=== PATIENT | female | born 1960 | race Caucasian/White ===

== ENCOUNTER → 2016-02-21 | Outpatient (CLI) | payer OTHER ==
--- NOTE | 2016-02-21 16:36 | P.HPBAR ---
Bariatric H&P - History & Physicial H&P Date: 02/21/16 History & Physicial: Visit/CC: FOLLOW UP VISIT Patient initial contact: Initial weight: 126.734 kg Initial weight in pounds: 279.40 Height: 5 ft 6 in Initial BMI: 45.1 Last weight: Current weight: 127.006 kg Current weight in pounds: 280.00 Current BMI: 45.1 [place] body weight (based on NIH guidelines): 58.967 kg Excess body weight loss: The patient is a 55 year-old F who presents for Bariatric Assessment. Patient presents for preoperative consultation. She saw her polishing machine operator helper Dr. Lopez. Who is told her that she should have surgery performed in 9 months due to her recent cardiac stent. The patient is worried about her paperwork. She has been preauthorized her surgery and may require repeat her preauthorization. Past Medical History Past Medical History: Diabetes Mellitus, GERD/Reflux, Hyperlipidemia, Hypertension Additional Past Medical History / Comment(s): CARDIAC HX SEE DR FORBES'S H& P History of Any Multi-Drug Resistant Organisms: None Reported Past Surgical History: Bariatric Surgery, Heart Catheterization With Stent, Hysterectomy Additional Past Surgical History / Comment(s): lapband, lapband removal 2010 Past Anesthesia/Blood Transfusion Reactions: No Reported Reaction Date of Last Stent Placement:: 12/06/2015 Past Psychological History: No Psychological Hx Reported Smoking Status: Never smoker Past Alcohol Use History: Rare Past Drug Use History: None Reported - Past Family History Mother Family Medical History: Cancer Father Family Medical History: Diabetes Mellitus Surgical - Exam Vital Signs Temp Pulse BP 97.0 F L 65 146/79 02/21/16 12:49 02/21/16 12:49 02/21/16 12:49 - General well developed, no distress - Eyes PERRL - ENT normal pinna - Neck no masses - Respiratory normal expansion - Cardiovascular Rhythm: regular - Abdomen Abdomen: soft, non tender Bariatric Assessment & Plan Plan: Morbid obesity. Patient will require cardiac clearance prior to sleeve gastrectomy. The patient will see her polishing machine operator helper in May. She will follow- up with me after her cardiology visit. Bariatric Checklist Checklist: Plan: Checklist: EGD: 1. Hiatal hernia: 2. H. Pylori: HgbA1c: Vitamin D: Smoking: Never smoker [facility] Psych[facility]ry clearance: Cardiology clearance: Sleep study: Diet journal: VTE risk score: VTE risk level: Rehab needs at discharge:
== END ==
CPT/HCPCS: 99211

== ENCOUNTER → 2016-06-12 | Outpatient (CLI) | payer OTHER ==
[2016-06-12 13:10] VITALS: BP 159/82; PULSE 69; TEMP 98.2; BMI 44.6
--- NOTE | 2016-06-12 15:45 | P.HPBAR ---
Bariatric H&P - History & Physicial H&P Date: 06/12/16 History & Physicial: Visit/CC: presurgical visit Patient initial contact: Initial weight: 126.734 kg Initial weight in pounds: 279.40 Height: 5 ft 7 in Initial BMI: 43.7 Last weight: Current weight: 129.365 kg Current weight in pounds: 285.20 Current BMI: 44.6 [place] body weight (based on NIH guidelines): 61.235 kg Excess body weight loss: The patient is a 56 year-old F who presents for Bariatric Assessment. Patient presents for sleeve gastrectomy follow-up consultation. She is awaiting cardiac clearance. She may need a cardiac catheterization. We went over the procedure of sleeve gastrectomy. And a discussed with the risks and benefits of procedure including staple line disruption bleeding or perforation. Review of Systems Constitutional: Reports anorexia Past Medical History Past Medical History: Diabetes Mellitus, GERD/Reflux, Hyperlipidemia, Hypertension Additional Past Medical History / Comment(s): CARDIAC HX SEE DR FORBES'S H& P History of Any Multi-Drug Resistant Organisms: None Reported Past Surgical History: Bariatric Surgery, Heart Catheterization With Stent, Hysterectomy Additional Past Surgical History / Comment(s): lapband, lapband removal 2010 Past Anesthesia/Blood Transfusion Reactions: No Reported Reaction Date of Last Stent Placement:: 12/06/2015 Past Psychological History: No Psychological Hx Reported Smoking Status: Never smoker Past Alcohol Use History: Rare Past Drug Use History: None Reported - Past Family History Mother Family Medical History: Cancer Father Family Medical History: Diabetes Mellitus Surgical - Exam Vital Signs Temp Pulse BP 98.2 F 69 159/82 06/12/16 13:05 06/12/16 13:05 06/12/16 13:05 - General well developed, no distress - Eyes PERRL - ENT normal pinna - Neck no bruits - Respiratory normal expansion - Cardiovascular Rhythm: regular - Abdomen Abdomen: soft, non tender Bariatric Assessment & Plan Plan: Morbid obesity with BMI 45. Patient will be scheduled for sleeve gastrectomy once her cardiac clearance is completed. She'll follow-up in approximately 6 weeks. Bariatric Checklist Checklist: Plan: Checklist: EGD: 1. Hiatal hernia: 2. H. Pylori: HgbA1c: Vitamin D: Smoking: Never smoker Primary care physician referral: ann ([facility]) Psychiatry clearance: Cardiology clearance: Sleep study: Diet journal: VTE risk score: VTE risk level: Rehab needs at discharge:
== END | disposition home or self-care (01) ==
LOC: BARWHC3 12:47
PROVIDERS: ATTEND Surgery
DX: Z01.818 Encounter for other preprocedural examination (principal); E66.01 Morbid (severe) obesity due to excess calories; Z68.42 Body mass index [BMI] 45.0-49.9, adult
CPT/HCPCS: 99211

== ENCOUNTER 2016-07-11 10:58 | Day surgery (SDC) | payer OTHER ==
[2016-07-05 08:53] VITALS: BMI 45.1
[~2016-07-11 10:58] MED LIST: ALPRAZolam 0.25 MG TAB PO PRN; ASPIRIN 325 MG TAB PO ONE; SODIUM CHLORIDE 0.9% 1,000 ML in EMPTY BAG 1 BAG IV ONE
[2016-07-11 11:15] VITALS: RESP 16
[2016-07-11 11:26] LABS: Glucose,Whole Blood 163 mg/dL (75-99)
[2016-07-11] MEDS: MIDAZOLAM 2 MG/2 ML VIAL IV ONE ×2 (12:48→12:53)
[2016-07-11] MEDS ORDERED: diphenhydrAMINE 50 MG/ML 1 ML VIAL IVP ONE (12:50)
[2016-07-11] MEDS ORDERED: LIDOCAINE 2% INJ 20 MG/ML SQ ONE ×2 (12:55→13:04)
[2016-07-11] MEDS ORDERED: fentaNYL (PF) 50 MCG/ML 2 ML AMP IV ONE (13:00)
[2016-07-11] MEDS ORDERED: RX INFO: IV CONTRAST WAS GIVEN 1 EACH MISC MISCELLANE PRN (13:26)
[2016-07-11] MEDS ORDERED: IOHEXOL 350 MG/ML 125ML BOTTLE INJ ONE (13:30)
[2016-07-11] MEDS ORDERED: SODIUM CHLORIDE 0.9% 1,000 ML IV SCH (13:30)
[2016-07-11 15:42] VITALS: TEMP 97.4
[2016-07-11 17:03] LABS: Glucose,Whole Blood 119 mg/dL (75-99)
[2016-07-11 17:06] VITALS: BP 138/65; PULSE 71
--- NOTE | 2016-07-12 09:02 | P.PCN ---
Date of Procedure: 07/11/16 Preoperative Diagnosis: Ischemic heart disease and probably abnormal stress test. Patient requiring preop clearance for surgical procedure Postoperative Diagnosis: Patent stent in the LAD with mild ostial stenosis of the circumflex which is stable Procedure(s) Performed: Left heart catheterization without left ventriculography Implants: Indications for Procedure: Operative Findings: Description of Procedure: HISTORY: This is a 56-year-old female with history of stent placement of the left anterior descending who is going to have gastric sleeve operation. Patient had a recent stress test which showed possible ischemia and anterior wall. Patient is advised to have a cardiac catheterization to rule out any in- stent stenosis before clearing her for surgery CONSENT:I have discussed the risks, benefits and alternative therapies for the above-mentioned procedure and for both sedation/analgesia as well as necessary blood product administration, if indicated, as they pertain to this patient. The patient has indicated understanding and acceptance of the risks and procedures discussed. PROCEDURE: Patient was brought to the lab in a fasting state. Patient was given some IV sedation. The right groin is infiltrated with lidocaine and right femoral artery was entered using Seldinger technique. A 6-Macedonian catheter was left in place and selective coronary arteriography was performed. Patient tolerated the procedure well. Femoral angiogram was performed and Angio-Seal was applied for hemostasis. No immediate complications were noted and patient was transferred to [facility] in a stable condition HEMODYNAMICS: Aortic pressure is about 110/70. Left ankle end-diastolic pressure is about 15. There was no gradient across the aortic valve. SELECTIVE CORONARY ARTERIOGRAPHY: LEFT MAIN: Normal length and patent THE LEFT ANTERIOR DESCENDING CORONARY ARTERY: This is a good caliber vessel giving rise to good-sized diagonal branch. The proximal and mid LAD is calcified. Stent in the proximal to mid LAD appears to be patent. THE LEFT CIRCUMFLEX AND IS CORONARY ARTERY: This is a good caliber vessel giving rise to good-sized OM branch. The circumflex and its branches are free of occlusive disease except mild stenosis of the ostium of the circumflex THE RIGHT CORONARY ARTERY: This is a good caliber vessel and appears to be free of any significant occlusive disease. LEFT VENTRICULOGRAPHY: Not performed FINAL IMPRESSION: Stable coronary artery disease with a patent stent in the left anterior descending. Mild ostial stenosis of the circumflex PLAN: Continuation of the maximal medical therapy. Patient is being cleared for surgery PROGNOSIS: Fair
== END 2016-07-11 19:37 | disposition home or self-care (01) ==
LOC: CATHCVL 10:58 → 3SUR 13:20 → 3OBS 19:33 → CATHCVL 19:37
PROVIDERS: ATTEND Internal Medicine Cardiovascular Disease
DX: Z01.810 Encounter for preprocedural cardiovascular examination (principal); I25.10 Atherosclerotic heart disease of native coronary artery without angina pectoris; I10 Essential (primary) hypertension; Z87.891 Personal history of nicotine dependence; E78.5 Hyperlipidemia, unspecified; E11.9 Type 2 diabetes mellitus without complications; Z79.84 Long term (current) use of oral hypoglycemic drugs; E66.01 Morbid (severe) obesity due to excess calories; Z68.42 Body mass index [BMI] 45.0-49.9, adult; Z79.82 Long term (current) use of aspirin; Z79.899 Other long term (current) drug therapy; Z88.0 Allergy status to penicillin
CPT/HCPCS: 93458; 99152; 99153; C1760; C1894; C1769; J2001; J2250; J1200; J3010; Q9967

== ENCOUNTER → 2016-07-17 | Outpatient (CLI) | payer OTHER ==
--- NOTE | 2016-07-17 14:00 | MM ---
Reason for exam: screening (asymptomatic). Last mammogram was performed 1 year ago. History: Patient is postmenopausal. Family history of breast cancer in mother at age 72. Benign left US cyst aspiration of the left breast, January 12, 2006. Benign excisional biopsy of the left breast, December 30, 1999. Physical Findings: A clinical breast exam by your physician is recommended on an annual basis and results should be correlated with mammographic findings. MG 3D Screening Mammo W/Cad Bilateral CC and MLO view(s) were taken. Prior study comparison: July 16, 2015, bilateral MG 3d screening mammo w/cad. July 14, 2014, bilateral MG screening mammo w CAD. There are scattered fibroglandular densities. Previous mammotome biopsy within the left breast. No significant changes when compared with prior studies. ASSESSMENT: Benign, BI-RAD 2 RECOMMENDATION: Routine screening mammogram of both breasts in 1 year.
== END | disposition home or self-care (01) ==
LOC: RADMAMWWP 10:05
PROVIDERS: ATTEND Family Medicine
DX: Z12.31 Encounter for screening mammogram for malignant neoplasm of breast (principal); Z80.3 Family history of malignant neoplasm of breast
CPT/HCPCS: 77063; G0202

== ENCOUNTER → 2016-07-24 | Outpatient (CLI) | payer OTHER ==
[2016-07-24 13:50] VITALS: BP 165/83; PULSE 76; RESP 16; TEMP 98.1; BMI 44.5
--- NOTE | 2016-07-24 13:50 | P.HPBAR ---
Bariatric H&P - History & Physicial H&P Date: 07/24/16 History & Physicial: Visit/CC: Patient initial contact: Initial weight: 126.734 kg Initial weight in pounds: Height: 5 ft 7 in Initial BMI: Last weight: Current weight: 129.092 kg Current weight in pounds: Current BMI: [place] body weight (based on NIH guidelines): Excess body weight loss: The patient is a 56 year-old F who presents for Bariatric Assessment. The patient has obtained cardiac clearance. She wishes to proceed with her gastric sleeve. She is still more replaced with a BMI 45. Past Medical History Past Medical History: Diabetes Mellitus, GERD/Reflux, Hyperlipidemia, Hypertension Additional Past Medical History / Comment(s): CARDIAC HX SEE DR FORBES'S H& P History of Any Multi-Drug Resistant Organisms: None Reported Past Surgical History: Bariatric Surgery, Heart Catheterization With Stent, Hysterectomy Additional Past Surgical History / Comment(s): lapband, lapband removal 2010,D& Cs Past Anesthesia/Blood Transfusion Reactions: No Reported Reaction Date of Last Stent Placement:: 12/06/2015 Past Psychological History: No Psychological Hx Reported Smoking Status: Never smoker Past Alcohol Use History: Rare Past Drug Use History: None Reported - Past Family History Mother Family Medical History: Cancer Father Family Medical History: Diabetes Mellitus Surgical - Exam - General well developed, no distress - Eyes PERRL - ENT normal pinna - Respiratory normal expansion - Cardiovascular Rhythm: regular - Abdomen Abdomen: soft, non tender Bariatric Assessment & Plan Plan: Morbid obesity with BMI of 45. Patient will attend new patient class and meet with the dietitian. She'll be scheduled for sleeve gastrectomy once her authorizations complete. Bariatric Checklist Checklist: Plan: Checklist: EGD: 1. Hiatal hernia: 2. H. Pylori: HgbA1c: Vitamin D: Smoking: Never smoker Primary care physician referral: ann ([facility]) Psychiatry clearance: Cardiology clearance: Sleep study: Diet journal: VTE risk score: VTE risk level: Rehab needs at discharge:
== END | disposition home or self-care (01) ==
LOC: BARWHC3 12:55
PROVIDERS: ATTEND Surgery
DX: Z09 Encounter for follow-up examination after completed treatment for conditions other than malignant neoplasm (principal); E11.9 Type 2 diabetes mellitus without complications; E78.5 Hyperlipidemia, unspecified; I10 Essential (primary) hypertension; Z98.84 Bariatric surgery status
CPT/HCPCS: 99211

== ENCOUNTER → 2016-09-04 | Outpatient (CLI) | payer OTHER ==
[2016-09-04 15:25] LABS: Basophils % (A) 1 %; CHCM 32.3; Eosinophils # (A) 0.2 k/uL (0-0.7); Eosinophils % (A) 2 %; HCT 41.4 % (34.0-46.0); HDW 2.45; HGB 13.6 gm/dL (11.4-16.0); Luc # (Auto) 0.25; Luc % (Auto) 3; Lymphocytes # (A) 2.3 k/uL (1.0-4.8); Lymphocytes % (A) 29 %; MCH 30.7 pg (25.0-35.0); MCHC 32.9 g/dL (31.0-37.0); MCV 93.4 fL (80.0-100.0); Mean Platelet Volume 7.8; Monocytes # (A) 0.7 k/uL (0-1.0); Monocytes % (A) 9 %; Neutrophils # (A) 4.4 k/uL (1.3-7.7); Neutrophils % (A) 56 %; RBC 4.44 m/uL (3.80-5.40); RDW 14.8 % (11.5-15.5); WBC 7.9 k/uL (3.8-10.6)
[2016-09-04 15:32] LABS: ALT 57 U/L (9-52); AST 39 U/L (14-36); Alkaline Phosphatase 73 U/L (38-126); Anion Gap 12 mmol/L; Blood Urea Nitrogen 22 mg/dL (7-17); Calcium 10.1 mg/dL (8.4-10.2); Carbon Dioxide 26 mmol/L (22-30); Chloride 105 mmol/L (98-107); Glucose 163 mg/dL (74-99); Non-African American GFR(MDRD) >60 (>60 ml/min/1.73 sqM); Potassium 3.8 mmol/L (3.5-5.1); Sodium 143 mmol/L (137-145); Total Bilirubin 0.5 mg/dL (0.2-1.3); Total Protein 7.2 g/dL (6.3-8.2)
== END | disposition home or self-care (01) ==
LOC: LABPAT 14:54
PROVIDERS: ATTEND Surgery
DX: Z01.812 Encounter for preprocedural laboratory examination (principal)
CPT/HCPCS: 80053; 85025

== ENCOUNTER → 2016-09-04 | Outpatient (CLI) | payer OTHER ==
[2016-09-04 14:11] VITALS: BP 144/68; PULSE 84; RESP 16; TEMP 97.9; BMI 44.9
--- NOTE | 2016-09-04 17:13 | P.HPBAR ---
Bariatric H&P - History & Physicial H&P Date: 09/04/16 History & Physicial: Visit/CC: Pre-Surg Patient initial contact: Initial weight: 126.734 kg Initial weight in pounds: 279.40 Height: 5 ft 7 in Initial BMI: 43.7 Last weight: Current weight: 130.181 kg Current weight in pounds: 287.00 Current BMI: 44.9 [place] body weight (based on NIH guidelines): 61.235 kg Excess body weight loss: The patient is a 56 year-old F who presents for Bariatric Assessment. The patient presents today for follow-up. She has morbid obesity. She is scheduled to have her sleeve gastrectomy performed next month. Patient still has some minimal GERD symptoms. Past Medical History Past Medical History: Diabetes Mellitus, GERD/Reflux, Hyperlipidemia, Hypertension Additional Past Medical History / Comment(s): CARDIAC HX SEE DR FORBES'S H& P History of Any Multi-Drug Resistant Organisms: None Reported Past Surgical History: Bariatric Surgery, Heart Catheterization With Stent, Hysterectomy Additional Past Surgical History / Comment(s): lapband, lapband removal 2010,D& Cs Past Anesthesia/Blood Transfusion Reactions: No Reported Reaction Date of Last Stent Placement:: 12/06/2015 Past Psychological History: No Psychological Hx Reported Smoking Status: Never smoker Past Alcohol Use History: Rare Past Drug Use History: None Reported - Past Family History Mother Family Medical History: Cancer Father Family Medical History: Diabetes Mellitus Surgical - Exam Vital Signs Temp Pulse Resp BP 97.9 F 84 16 144/68 09/04/16 14:08 09/04/16 14:08 09/04/16 14:08 09/04/16 14:08 - General well developed, no distress - Eyes PERRL - Abdomen Abdomen: soft, non tender Bariatric Assessment & Plan Plan: Morbid obesity with BMI of 45. I discussed with the patient the risks of surgery including conversion to the open procedure and injury to the stomach, liver and spleen. I discussed with possible risk of gastric staple line disruption, bleeding or perforation. The patient will be scheduled for sleeve atropine next month. Bariatric Checklist Checklist: Plan: Checklist: EGD: 1. Hiatal hernia: 2. H. Pylori: HgbA1c: Vitamin D: Smoking: Never smoker Primary care physician referral: ann ([facility]) Psychiatry clearance: Cardiology clearance: Sleep study: Diet journal: VTE risk score: VTE risk level: Rehab needs at discharge:
== END | disposition home or self-care (01) ==
LOC: BARWHC3 13:51
PROVIDERS: ATTEND Surgery
DX: Z01.818 Encounter for other preprocedural examination (principal); E11.9 Type 2 diabetes mellitus without complications; E78.5 Hyperlipidemia, unspecified; I10 Essential (primary) hypertension; K21.9 Gastro-esophageal reflux disease without esophagitis; Z98.84 Bariatric surgery status
CPT/HCPCS: 99211

== ENCOUNTER 2016-09-26 07:45 | Inpatient (IN) | payer OTHER ==
[~2016-09-26 07:45] MED LIST changes: -ALPRAZolam 0.25 MG TAB PO PRN; -ASPIRIN 325 MG TAB PO ONE; +DEXAMETHASONE SOD PHOSPHATE 10 MG/ML 1 ML VIAL IV ONE; +HYDROmorphone 1 MG/ML 1 ML SYRINGE IVP PRN; +MIDAZOLAM 2 MG/2 ML VIAL IV PRN; +ONDANSETRON 4 MG/2 ML VIAL IVP ONE; +SCOPOLAMINE 1.5MG/72HR PATCH TRANSDERM ONE; -SODIUM CHLORIDE 0.9% 1,000 ML in EMPTY BAG 1 BAG IV ONE; +ceFAZolin 3 GM in SODIUM CHLORIDE 0.9% 100 ML IVPB ONE
[2016-09-26] MEDS ORDERED: METHYLENE BLUE 30 MG in DEXTROSE 5% IN WATER 500 ML IRRIGATION ONE ×2 (08:41)
[2016-09-26] MEDS: LACTATED RINGERS 1,000 ML IV SCH (08:45)
[2016-09-26] MEDS ORDERED: LIDOCAINE 1% 20 ML VIAL (10MG/ML) FOR IV START INTRADERMA ONE (08:45)
[2016-09-26 08:57] LABS: Glucose,Whole Blood 111 mg/dL (75-99)
--- NOTE | 2016-09-26 09:15 | P.GSHP ---
History of Present Illness H&P Date: 09/26/16 Chief Complaint: Morbid obesity, BMI 43 This a 56-year-old female who presents today for laparoscopic sleeve gastrectomy patient's had a previous LAP-BAND which was removed over a year ago. Patient presents sleeve gastrectomy.. She understands the risks and benefits of procedure. She understands the risk of gastric perforation staple line disruption and bleeding. Past Medical History Past Medical History: Diabetes Mellitus, GERD/Reflux, Hyperlipidemia, Hypertension Additional Past Medical History / Comment(s): Hx rapid heart rate,steroid injection July History of Any Multi-Drug Resistant Organisms: None Reported Past Surgical History: Bariatric Surgery, Cardiac Ablation, Heart Catheterization With Stent, Hysterectomy Additional Past Surgical History / Comment(s): lapband, lapband removal 2010,D& Cs Past Anesthesia/Blood Transfusion Reactions: No Reported Reaction Additional Past Anesthesia/Blood Transfusion Reaction / Comment(s): no hx blood transfusion Date of Last Stent Placement:: 12/06/2015 Smoking Status: Never smoker - Past Family History Mother Family Medical History: Cancer Father Family Medical History: Diabetes Mellitus Medications and Allergies Home Medications Medication Instructions Recorded Confirmed Type Aspirin 81 mg PO HS 06/07/15 09/26/16 History Furosemide [Lasix] 20 mg PO HS 06/07/15 09/26/16 History Losartan-Hctz 50-12.5 mg [Hyzaar 1 tab PO QAM 06/07/15 09/26/16 History 50-12.5] Montelukast [Singulair] 10 mg PO HS 06/07/15 09/26/16 History [place]-3 Fatty Acids/Fish Oil [Fish 1,200 mg PO DAILY 06/07/15 09/26/16 History Oil 1,000 mg Softgel] Pioglitazone [Actos] 30 mg PO DAILY 06/07/15 09/26/16 History Potassium Chloride [Klor-Con 10] 10 meq PO DAILY 06/07/15 09/26/16 History Ubidecarenone [Co Q-10] 200 mg PO DAILY 06/07/15 09/26/16 History Cetirizine HCl 10 mg PO DAILY 10/29/15 09/26/16 History Multivit-Min/Iron/Folic/Lutein 1 each PO DAILY 10/29/15 09/26/16 History [Centrum Silver Women Tablet] glipiZIDE [Glucotrol] 10 mg PO AC-BID 10/29/15 09/26/16 History Estradiol Cream [Estrace Cream 0.5 gm VAGINAL Q7DAYS 07/05/16 09/26/16 History 0.01%] metFORMIN HCL [Glucophage] 1,000 mg PO BID 09/18/16 09/26/16 History Allergies Allergy/AdvReac Type Severity Reaction Status Date / Time Penicillins Allergy Unknown Rash/Hives Verified 09/26/16 08:23 adhesive tape Allergy skin Verified 09/26/16 08:23 redness and itching,"paper tape ok" Surgical - Exam Vital Signs Temp Pulse Resp BP Pulse Ox 98.1 F 67 18 115/67 98 09/26/16 08:29 09/26/16 08:29 09/26/16 08:29 09/26/16 08:29 09/26/16 08:29 BMI 43 - General well developed, no distress - Eyes PERRL - ENT normal pinna - Neck no masses - Respiratory normal expansion - Cardiovascular Rhythm: regular - Abdomen Abdomen: soft, non tender Results - Labs Abnormal Lab Results - Last 24 Hours (Table) 09/26/16 Range/Units 08:42 POC Glucose (mg/dL) 111 H (75-99) mg/dL Assessment and Plan Plan: Morbid obesity with severe companies. We'll perform laparoscopic sleeve gastrectomy.
[2016-09-26] MEDS ORDERED: BUPIVACAINE-EPI 0.5%-1:200,000 10 ML VIAL SQ ONE (09:22)
[2016-09-26] MEDS ORDERED: ROCURONIUM BROMIDE 10 MG/ML 10 ML VIAL IV ONE (09:33)
[2016-09-26] MEDS ORDERED: fentaNYL (PF) 50 MCG/ML 2 ML AMP ONE (09:33)
[2016-09-26] MEDS ORDERED: NEOSTIGMINE 1 MG/ML 10 ML VIAL ONE (09:33)
[2016-09-26] MEDS ORDERED: GLYCOPYRROLATE 0.2 MG/ML 2 ML VIAL ONE (09:33)
[2016-09-26] MEDS ORDERED: LIDOCAINE 1% INJ 10MG/ML (20 ML MDV) ONE (09:33)
[2016-09-26] MEDS ORDERED: PROPOFOL 10 MG/ML 20 ML VIAL IV ONE (09:33)
[2016-09-26] MEDS ORDERED: MIDAZOLAM 2 MG/2 ML VIAL ONE (09:33)
[2016-09-26] MEDS ORDERED: ENOXAPARIN 40 MG/0.4 ML SYRINGE SQ ONE (09:45)
[2016-09-26] MEDS ORDERED: LIDOCAINE 2%-EPI 1:100,000 20 ML VIAL SQ ONE (10:04)
[2016-09-26] MEDS ORDERED: BUPIVACAINE (PF) 0.25% 30 ML VIAL SQ ONE (10:04)
[2016-09-26] MEDS ORDERED: NALOXONE 0.4 MG/ML 1 ML VIAL IV PRN (11:10)
[2016-09-26] MEDS ORDERED: HYDROmorphone 1 MG/ML 1 ML SYRINGE IVP PRN (11:11)
[2016-09-26] MEDS ORDERED: KETOROLAC 30 MG/ML 1 ML VIAL IVP ONE (11:47)
[2016-09-26 12:05] LABS: Glucose,Whole Blood 174 mg/dL (75-99)
--- NOTE | 2016-09-26 12:36 | P.OP ---
Date of Procedure: 09/26/16 Preoperative Diagnosis: Morbid obesity BMI 43 Postoperative Diagnosis: Morbid obesity BMI 43 Procedure(s) Performed: Laparoscopic sleeve gastrectomy Laparoscopic lysis of adhesions Implants: Anesthesia: SAMM Surgeon: Flavio Garcia Estimated Blood Loss (ml): 5 Pathology: none sent Condition: stable Disposition: PACU Indications for Procedure: Operative Findings: Description of Procedure: The patient was placed on the operating room table in the supine position. She received general anesthesia and then was placed in dorsal lithotomy position. Her abdomen was prepped and draped in sterile fashion. The skin incision sites were anesthetized 1% local Xylocaine. And then the skin was incised with an 11 blade in the left lateral position. Using a blade less trocar under direct visualization the peritoneal cavity was entered. The abdomen was insufflated and then a 5 mm laparoscope was placed into the peritoneal cavity. A 5 mm trocar was placed in the right epigastric, and right lateral position. A 15 mm trocar was placed in the supra-umbilical position and another 5 mm trocar was placed in the left lateral position. The left lateral lobe of the liver was retracted. The stomach was visualized. The adhesions to the stomach were lysed using electrocautery and sharp dissection. Approximately 20 minutes of operative time used to lyse adhesions. The anterior gastric wall plication was taken down with sharp dissection. The patient a previous LAP-BAND. The greater curvature of the stomach was then dissected using the Harmonic scissors. The dissection occurred approximately 5 cm from the pylorus to the level of the left meli. There was no hiatal hernia seen. At this point a 40- Serbian bougie dilator was placed the oropharynx and passed into the esophagus and into the stomach by the PUMP RUNNER. The sleeve gastrectomy was performed by using the powered echelon stapler with a seam guard buttress material. Sequential firings of the stapler were performed. The gastric remnant was then brought out through the 15 mm trocar site. The dilator was withdrawn. And a orogastric tube was replaced into the stomach. The stomach was insufflated with 200 mL of methylene blue normal saline. There was no evidence of extravasation. The abdomen was irrigated there is no bleeding seen. The Rodney -Gume device was used to close the 15 mm trocar with 0 Vicryl. Skin was closed with interrupted 3-0 Monocryl sutures once the trochars withdrawn. Dermabond dressing was applied. Patient was sent to recovery in stable condition.
[2016-09-26] MEDS: 0.9% NACL WITH KCL 20 MEQ/L 1,000 ML IV SCH (13:32)
--- NOTE | 2016-09-26 14:07 | P.CONS ---
History of Present Illness - Reason for Consult Consult date: 09/26/16 Medical management - Chief Complaint Morbid obesity - History of Present Illness This is a 56-year-old female with past medical history noted below who was admitted to the hospital for elective sleeve gastrectomy. She is postoperative day #0. Patient tolerated the surgery well. Pain is well-controlled. She does not have any complaints at this time. I was asked to see her for medical management. She is allowed to have ice chips at this time. Review of Systems Review of system: 14 points review of systems were obtained and were negative except to what were mentioned in the HPI. Past Medical History Past Medical History: Diabetes Mellitus, GERD/Reflux, Hyperlipidemia, Hypertension Additional Past Medical History / Comment(s): Hx rapid heart rate,steroid injection July History of Any Multi-Drug Resistant Organisms: None Reported Past Surgical History: Bariatric Surgery, Cardiac Ablation, Heart Catheterization With Stent, Hysterectomy Additional Past Surgical History / Comment(s): lapband, lapband removal 2010,D& Cs Past Anesthesia/Blood Transfusion Reactions: No Reported Reaction Additional Past Anesthesia/Blood Transfusion Reaction / Comm: no hx blood transfusion Date of Last Stent Placement:: 12/06/2015 Past Psychological History: No Psychological Hx Reported Smoking Status: Never smoker Past Alcohol Use History: Rare Past Drug Use History: None Reported - Past Family History Mother Family Medical History: Cancer Father Family Medical History: Diabetes Mellitus Medications and Allergies Home Medications Medication Instructions Recorded Confirmed Type Aspirin 81 mg PO HS 06/07/15 09/26/16 History Furosemide [Lasix] 20 mg PO HS 06/07/15 09/26/16 History Losartan-Hctz 50-12.5 mg [Hyzaar 1 tab PO QAM 06/07/15 09/26/16 History 50-12.5] Montelukast [Singulair] 10 mg PO HS 06/07/15 09/26/16 History [place]-3 Fatty Acids/Fish Oil [Fish 1,200 mg PO DAILY 06/07/15 09/26/16 History Oil 1,000 mg Softgel] Pioglitazone [Actos] 30 mg PO DAILY 06/07/15 09/26/16 History Potassium Chloride [Klor-Con 10] 10 meq PO DAILY 06/07/15 09/26/16 History Ubidecarenone [Co Q-10] 200 mg PO DAILY 06/07/15 09/26/16 History Cetirizine HCl 10 mg PO DAILY 10/29/15 09/26/16 History Multivit-Min/Iron/Folic/Lutein 1 tab PO DAILY 10/29/15 09/26/16 History [Centrum Silver Women Tablet] glipiZIDE [Glucotrol] 10 mg PO AC-BID 10/29/15 09/26/16 History Estradiol Cream [Estrace Cream 0.5 gm VAGINAL Q7DAYS 07/05/16 09/26/16 History 0.01%] metFORMIN HCL [Glucophage] 1,000 mg PO BID 09/18/16 09/26/16 History Allergies Allergy/AdvReac Type Severity Reaction Status Date / Time Penicillins Allergy Unknown Rash/Hives Verified 09/26/16 08:23 adhesive tape Allergy skin Verified 09/26/16 08:23 redness and itching,"paper tape ok" Physical Exam Vitals: Vital Signs Temp Pulse Resp BP Pulse Ox 09/26/16 12:30 56 L 16 129/61 94 L 09/26/16 12:15 71 16 129/61 94 L 09/26/16 12:00 62 16 145/65 92 L 09/26/16 11:45 64 16 160/70 100 09/26/16 11:30 96.7 F L 81 16 149/75 100 09/26/16 08:29 98.1 F 67 18 115/67 98 Intake and Output 09/25/16 09/26/16 09/26/16 22:59 06:59 14:59 Intake Total 1000 Output Total 75 Balance 925 Intake: IV 1000 Output: Estimated Blood Loss 75 Other: Weight 124.3 kg Patient Weight 09/27/16 06:59 Weight 124.3 kg General: The patient is awake and alert, in no distress Eye: there is normal conjunctiva bilaterally. Neck: The neck is supple, there is no JVD. Cardiovascular: Normal S1-S2, no S3-S4, no murmurs. Respiratory: Lungs clear to auscultation bilaterally Gastrointestinal: Abdomen is soft, nontender Musculoskeletal: There is no pedal edema. Neurological:. Speech is normal. Skin: Skin is warm and dry Results Labs: Abnormal Lab Results - Last 24 Hours (Table) 09/26/16 09/26/16 Range/Units 08:42 12:02 POC Glucose (mg/dL) 111 H 174 H (75-99) mg/dL Assessment and Plan Plan: 1. Postoperative day #0 status post laparoscopic sleeve gastrectomy 2. Coronary artery disease with history of stent placement to the LAD. Continue dual antiplatelet therapy 3. Essential hypertension: Blood pressure well-controlled 4. Type 2 diabetes mellitus: Continue sliding scale insulin. Hold oral agents for now 5. DVT prophylaxis with subcu Lovenox Today, I reviewed her medication list. Continue current regimen. Lab work ordered for the morning. Postoperative care. IV fluid hydration. Thank you very much for the consultation, I will continue to follow up with you closely.
[2016-09-26] MEDS: ALBUTEROL NEBULIZED 2.5 MG/3 ML INHALATION SCH ×3 (14:35→20:04)
[2016-09-26 16:36] LABS: Glucose,Whole Blood 186 mg/dL (75-99)
[2016-09-26] MEDS: KETOROLAC 30 MG/ML 1 ML VIAL IVP SCH ×2 (16:53→18:26)
[2016-09-26] MEDS: CLINDAMYCIN 900 MG in DEXTROSE 5% IN WATER 50 ML IVPB SCH ×2 (17:18)
[2016-09-26] MEDS: INSULIN LISPRO (humaLOG) 300 UNIT/3 ML VIAL SQ SCH (18:06)
[2016-09-26] MEDS ORDERED: MONTELUKAST 10 MG TAB PO SCH (21:00)
[2016-09-26] MEDS ORDERED: ASPIRIN 81 MG PO SCH (21:00)
[2016-09-26] MEDS ORDERED: ATORVASTATIN 80 MG TAB PO SCH (21:00)
[2016-09-26 21:43] LABS: Glucose,Whole Blood 135 mg/dL (75-99)
[2016-09-26] MEDS: METOPROLOL TARTRATE 25 MG TAB PO SCH (21:45)
[2016-09-26 23:37] LABS: Glucose,Whole Blood 132 mg/dL (75-99)
[2016-09-27] MEDS: INSULIN LISPRO (humaLOG) 300 UNIT/3 ML VIAL SQ SCH ×3 (00:29→11:53)
[2016-09-27] MEDS: CLINDAMYCIN 900 MG in DEXTROSE 5% IN WATER 50 ML IVPB SCH ×2 (00:30)
[2016-09-27] MEDS: 0.9% NACL WITH KCL 20 MEQ/L 1,000 ML IV SCH ×2 (00:30→09:36)
[2016-09-27] MEDS: KETOROLAC 30 MG/ML 1 ML VIAL IVP SCH ×3 (00:32→11:55)
[2016-09-27 02:01] VITALS: RESP 16
[2016-09-27] MEDS: LACTATED RINGERS 1,000 ML IV SCH (05:52)
[2016-09-27 06:01] LABS: Glucose,Whole Blood 99 mg/dL (75-99)
[2016-09-27] MEDS: ALBUTEROL NEBULIZED 2.5 MG/3 ML INHALATION SCH ×2 (07:20→11:30)
[2016-09-27 07:38] VITALS: BP 144/64; PULSE 73; TEMP 96.8
[2016-09-27 07:48] LABS: Basophils % (A) 0 %; CH 30.5; CHCM 32.9; Eosinophils % (A) 0 %; HCT 34.6 % (34.0-46.0); HDW 2.53; HGB 10.8 gm/dL (11.4-16.0); Luc # (Auto) 0.25; Luc % (Auto) 3; Lymphocytes # (A) 1.1 k/uL (1.0-4.8); Lymphocytes % (A) 13 %; MCHC 31.2 g/dL (31.0-37.0); Monocytes # (A) 0.8 k/uL (0-1.0); Monocytes % (A) 9 %; Neutrophils # (A) 6.5 k/uL (1.3-7.7); Neutrophils % (A) 75 %; RBC 3.72 m/uL (3.80-5.40); RDW 14.9 % (11.5-15.5); WBC 8.7 k/uL (3.8-10.6); WBC (Perox) 9.49
[2016-09-27 07:54] LABS: Anion Gap 9 mmol/L; Blood Urea Nitrogen 16 mg/dL (7-17); Calcium 8.7 mg/dL (8.4-10.2); Carbon Dioxide 25 mmol/L (22-30); Chloride 106 mmol/L (98-107); Magnesium 1.7 mg/dL (1.6-2.3); Non-African American GFR(MDRD) >60 (>60 ml/min/1.73 sqM); Phosphorous 2.8 mg/dL (2.5-4.5); Potassium 3.8 mmol/L (3.5-5.1); Sodium 140 mmol/L (137-145)
[2016-09-27] MEDS ORDERED: 1: MVI, ADULT NO.4 WITH VIT K 10 ML, THIAMINE 100 MG, FOLIC ACID 1 MG, POTASSIUM CHLORID IV SCH ×6 (08:00)
--- NOTE | 2016-09-27 08:16 | FL ---
EXAMINATION TYPE: FL UGI DATE OF EXAM: 09/27/2016 CLINICAL HISTORY: Status post gastric sleeve Contrast: Omnipaque 350 50 mL 40sec fluoro time and 6 images The patient ingested contrast without difficulty or delay. Noted are postsurgical changes of gastric sleeve. There is no evidence for leak or obstruction. Contrast is noted within the duodenum. IMPRESSION: Post-surgical change of gastric sleeve without evidence for obstruction or leak at this point in time.
[2016-09-27] MEDS ORDERED: PANTOPRAZOLE 40 MG/10 ML VIAL IV SCH (09:00)
[2016-09-27] MEDS ORDERED: ENOXAPARIN 40 MG/0.4 ML SYRINGE SQ SCH (09:00)
[2016-09-27] MEDS ORDERED: LOSARTAN-HCTZ 50-12.5 MG 1 EACH TAB PO SCH (09:00)
[2016-09-27] MEDS ORDERED: PRASUGREL 10 MG TAB PO SCH (09:00)
[2016-09-27 09:08] LABS: Hemoglobin A1C 6.7 % (4.2-6.1)
[2016-09-27] MEDS: METOPROLOL TARTRATE 25 MG TAB PO SCH (09:37)
[2016-09-27 10:25] VITALS: BMI 42.9
[2016-09-27 11:49] LABS: Glucose,Whole Blood 96 mg/dL (75-99)
[2016-09-27] MEDS ORDERED: INSULIN LISPRO (humaLOG) 300 UNIT/3 ML VIAL SQ SCH (12:30)
--- NOTE | 2016-09-27 12:49 | P.PN ---
Subjective Patient is doing fairly well today. No evidence overnight. Objective - Vital Signs Vital signs: Vital Signs Temp 96.8 F L 09/27/16 07:00 Pulse 73 09/27/16 08:00 Resp 16 09/27/16 08:00 BP 144/64 09/27/16 07:00 Pulse Ox 97 09/27/16 08:46 Intake & Output 09/26/16 09/27/16 09/27/16 18:59 06:59 18:59 Intake Total 1000 2400 Output Total 75 1100 Balance 925 1300 Weight 124.3 kg 124.3 kg Intake: IV 1000 Intake, IV Titration 2400 Amount 0.9% NaCl with KCl 20 Meq 2400 /l 1,000 ml @ 150 mls/hr IV .[id number] [facility] Rx#: [id number] Output: Urine 1100 Estimated Blood Loss 75 Other: Voiding Method Toilet # Voids 50 1 # Bowel Movements 0 - Exam General: The patient is awake and alert, in no distress Eye: there is normal conjunctiva bilaterally. Neck: The neck is supple, there is no JVD. Cardiovascular: Normal S1-S2, no S3-S4, no murmurs. Respiratory: Lungs clear to auscultation bilaterally Gastrointestinal: Abdomen is soft, nontender Musculoskeletal: There is no pedal edema. Neurological:. Speech is normal. Skin: Skin is warm and dry - Labs CBC & Chem 7: 09/27/16 07:11 09/27/16 07:11 Labs: Abnormal Lab Results - Last 24 Hours (Table) 09/26/16 09/26/16 09/26/16 Range/Units 16:35 21:39 23:36 RBC (3.80-5.40) m/uL Hgb (11.4-16.0) gm/dL POC Glucose (mg/dL) 186 H 135 H 132 H (75-99) mg/dL Hemoglobin A1c (4.2-6.1) % 09/27/16 09/27/16 Range/Units 07:11 07:11 RBC 3.72 L (3.80-5.40) m/uL Hgb 10.8 L (11.4-16.0) gm/dL POC Glucose (mg/dL) (75-99) mg/dL Hemoglobin A1c 6.7 H (4.2-6.1) % Assessment and Plan Plan: 1. Postoperative day #1 status post laparoscopic sleeve gastrectomy 2. Coronary artery disease with history of stent placement to the LAD. Continue dual antiplatelet therapy 3. Essential hypertension: Blood pressure well-controlled 4. Type 2 diabetes mellitus: Well controlled. Continue sliding scale insulin. Hold oral agents for now. A1c 6.7 5. DVT prophylaxis with subcu Lovenox Today, I reviewed her medication list. Continue current regimen. Lab work ordered for the morning. Postoperative care. IV fluid hydration. Thank you very much for the consultation, I will continue to follow up with you closely.
--- NOTE | 2016-09-27 13:40 | P.DS ---
Providers Date of admission: 09/26/16 08:07 Expected date of discharge: 09/27/16 Attending physician: Flavio Garcia Consults: 09/26/16 11:11 Consult Physician Routine Consulting Provider: Martha Hdez Consult Reason/Comments: Medical management Do you want consulting provider notified?: Yes Primary care physician: Bethany [facility] Course: 56-year-old female underwent a laparoscopic sleeve gastrectomy lysis of adhesions for morbid obesity done on September 26. There were no postop events. Patient was tolerating clear liquid diet. Patient denied any surgical pain. Abdomen was soft surgical sites no redness. Patient was anxious to be discharged home. There were no postop events. Impression discharge diagnoses Morbid obesity BMI 42 Postop gastric sleeve Type 2 diabetes controlled Known coronary artery disease with prior coronary stenting to the LAD on dual antiplatelet therapy Postop September 26 laparoscopic sleeve gastrectomy The above impression and plan of care have been discussed and directed by signing physician. Alexandra Charles nurse practitioner acting as scribe for signing physician. Plan - Discharge Summary New Discharge Prescriptions: New HYDROcodone/APAP 5-325MG [[place] 5-325] 1 tab PO Q4HR PRN #15 tab PRN Reason: Mild Pain Or Fever >= 100.5 Continue Aspirin 81 mg PO HS Montelukast [Singulair] 10 mg PO HS Furosemide [Lasix] 20 mg PO HS [place]-3 Fatty Acids/Fish Oil [Fish Oil 1,000 mg Softgel] 1,200 mg PO DAILY Ubidecarenone [Co Q-10] 200 mg PO DAILY Potassium Chloride [Klor-Con 10] 10 meq PO DAILY Pioglitazone [Actos] 30 mg PO DAILY Losartan-Hctz 50-12.5 mg [Hyzaar 50-12.5] 1 tab PO QAM Cetirizine HCl 10 mg PO DAILY Multivit-Min/Iron/Folic/Lutein [Centrum Silver Women Tablet] 1 tab PO DAILY glipiZIDE [Glucotrol] 10 mg PO AC-BID Atorvastatin [Lipitor] 80 mg PO HS #30 tab Metoprolol Tartrate [Lopressor] 25 mg PO BID #60 tab Nitroglycerin Sl Tabs [Nitrostat] 0.4 mg SUBLINGUAL Q5M PRN #100 tab PRN Reason: Chest Pain Prasugrel [Effient] 10 mg PO DAILY tab Estradiol Cream [Estrace Cream 0.01%] 0.5 gm VAGINAL Q7DAYS metFORMIN HCL [Glucophage] 1,000 mg PO BID Discharge Medication List Aspirin 81 mg PO HS 06/07/15 [History] Furosemide [Lasix] 20 mg PO HS 06/07/15 [History] Losartan-Hctz 50-12.5 mg [Hyzaar 50-12.5] 1 tab PO QAM 06/07/15 [History] Montelukast [Singulair] 10 mg PO HS 06/07/15 [History] [place]-3 Fatty Acids/Fish Oil [Fish Oil 1,000 mg Softgel] 1,200 mg PO DAILY 06/06 [History] Pioglitazone [Actos] 30 mg PO DAILY 06/07/15 [History] Potassium Chloride [Klor-Con 10] 10 meq PO DAILY 06/07/15 [History] Ubidecarenone [Co Q-10] 200 mg PO DAILY 06/07/15 [History] Cetirizine HCl 10 mg PO DAILY 10/29/15 [History] Multivit-Min/Iron/Folic/Lutein [Centrum Silver Women Tablet] 1 tab PO DAILY [History] glipiZIDE [Glucotrol] 10 mg PO AC-BID 10/29/15 [History] Atorvastatin [Lipitor] 80 mg PO HS #30 tab 12/04/15 [Rx] Metoprolol Tartrate [Lopressor] 25 mg PO BID #60 tab 12/04/15 [Rx] Nitroglycerin Sl Tabs [Nitrostat] 0.4 mg SUBLINGUAL Q5M PRN #100 tab 12/04/15 [ Rx] Prasugrel [Effient] 10 mg PO DAILY tab 12/04/15 [Rx] Estradiol Cream [Estrace Cream 0.01%] 0.5 gm VAGINAL Q7DAYS 07/05/16 [History] metFORMIN HCL [Glucophage] 1,000 mg PO BID 09/18/16 [History] HYDROcodone/APAP 5-325MG [[place] 5-325] 1 tab PO Q4HR PRN #15 tab 09/27/16 [Rx] Follow up Appointment(s)/Referral(s): Flavio Garcia MD [STAFF PHYSICIAN] - 1 Week Activity/Diet/Wound Care/Special Instructions: Reinforce dietary restrictions bariatric diet No lifting over 10 pounds for 1 week Discharge Disposition: HOME SELF-CARE
== END 2016-09-27 14:33 | disposition home or self-care (01) | DRG 621 ==
LOC: 2ORWHC 08:07 → 3SUR 11:42
PROVIDERS: ADMIT Surgery; ATTEND Surgery
PROC: 0DB64Z3 Excision of Stomach, Percutaneous Endoscopic Approach, Vertical (ICD-10-PCS; principal; 2016-09-26 09:35)
PROC: 0DN64ZZ Release Stomach, Percutaneous Endoscopic Approach (ICD-10-PCS; principal; 2016-09-26 09:35)
DX: E66.01 Morbid (severe) obesity due to excess calories (principal); I10 Essential (primary) hypertension; E11.9 Type 2 diabetes mellitus without complications; E78.5 Hyperlipidemia, unspecified; I25.10 Atherosclerotic heart disease of native coronary artery without angina pectoris; K21.9 Gastro-esophageal reflux disease without esophagitis; K66.0 Peritoneal adhesions (postprocedural) (postinfection); Z68.41 Body mass index [BMI] 40.0-44.9, adult; Z79.82 Long term (current) use of aspirin; Z79.84 Long term (current) use of oral hypoglycemic drugs; Z79.899 Other long term (current) drug therapy; Z83.3 Family history of diabetes mellitus; Z95.5 Presence of coronary angioplasty implant and graft; Z88.0 Allergy status to penicillin
CPT/HCPCS: 74240; 80051; 82310; 82565; 83036; 83735; 84100; 84520; 85025; 88307; 94640; 94760; 94762

== ENCOUNTER → 2016-10-09 | Outpatient (CLI) | payer OTHER ==
[2016-10-09 14:53] VITALS: BP 124/74; PULSE 69; RESP 20; TEMP 98.9; BMI 42.1
--- NOTE | 2016-10-09 15:14 | P.HPBAR ---
Bariatric H&P - History & Physicial H&P Date: 10/09/16 History & Physicial: Visit/CC: post op Patient initial contact: Initial weight: 126.734 kg Initial weight in pounds: 279.40 Height: 5 ft 7 in Initial BMI: 43.7 Last weight: 287 Current weight: 122.016 kg Current weight in pounds: 269.00 Current BMI: 42.1 [place] body weight (based on NIH guidelines): 61.235 kg Excess body weight loss: 7.2% The patient is a 56 year-old F who presents for Bariatric Assessment. Patient presents today for laparoscopic sleeve gastrectomy follow-up. She is doing quite well. She lost approximately surgery. Past Medical History Past Medical History: Diabetes Mellitus, GERD/Reflux, Hyperlipidemia, Hypertension Additional Past Medical History / Comment(s): Hx rapid heart rate,steroid injection July History of Any Multi-Drug Resistant Organisms: None Reported Past Surgical History: Bariatric Surgery, Cardiac Ablation, Heart Catheterization With Stent, Hysterectomy Additional Past Surgical History / Comment(s): lapband, lapband removal 2010,D& Cs, sleeve gastrectomy 09/27/16 Past Anesthesia/Blood Transfusion Reactions: No Reported Reaction Additional Past Anesthesia/Blood Transfusion Reaction / Comm: no hx blood transfusion Date of Last Stent Placement:: 12/06/2015 Smoking Status: Never smoker - Past Family History Mother Family Medical History: Cancer Father Family Medical History: Diabetes Mellitus Surgical - Exam Vital Signs Temp Pulse Resp BP 98.9 F 69 20 124/74 10/09/16 14:45 10/09/16 14:45 10/09/16 14:45 10/09/16 14:45 - General well developed, no distress - Eyes PERRL - Abdomen Abdomen: soft, non tender Bariatric Assessment & Plan Plan: Status post sleeve yesterday. Patient doing quite well. She'll follow-up in 4 weeks. Bariatric Checklist Checklist: Plan: Checklist: EGD: 1. Hiatal hernia: 2. H. Pylori: HgbA1c: Vitamin D: Smoking: Never smoker Primary care physician referral: ann ([facility]) Psychiatry clearance: Cardiology clearance: Sleep study: Diet journal: VTE risk score: VTE risk level: Rehab needs at discharge:
== END | disposition home or self-care (01) ==
LOC: BARWHC3 13:49
PROVIDERS: ATTEND Surgery
DX: Z48.815 Encounter for surgical aftercare following surgery on the digestive system (principal); Z98.84 Bariatric surgery status; E66.01 Morbid (severe) obesity due to excess calories
CPT/HCPCS: 97803; 99211

== ENCOUNTER → 2016-10-23 | Outpatient (CLI) | payer OTHER ==
[2016-10-23 14:26] VITALS: BP 136/66; PULSE 65; RESP 16; TEMP 98.5; BMI 41.5
--- NOTE | 2016-10-23 15:14 | P.HPBAR ---
Bariatric H&P - History & Physicial H&P Date: 10/23/16 History & Physicial: Visit/CC: sleeve one month f/u Patient initial contact: Initial weight: 130.181 kg Initial weight in pounds: 287.00 Height: 5 ft 7 in Initial BMI: 44.9 Last weight: 269 Current weight: 120.383 kg Current weight in pounds: 265.40 Current BMI: 41.5 [place] body weight (based on NIH guidelines): 61.235 kg Excess body weight loss: 14.2% The patient is a 56 year-old F who presents for Bariatric Assessment. Patient presents today for sleeve gastric follow-up. She is doing quite well. She's had some minimal GERD. Approximately 25 pounds since her surgery Past Medical History Past Medical History: Diabetes Mellitus, GERD/Reflux, Hyperlipidemia, Hypertension Additional Past Medical History / Comment(s): Hx rapid heart rate,steroid injection July History of Any Multi-Drug Resistant Organisms: None Reported Past Surgical History: Bariatric Surgery, Cardiac Ablation, Heart Catheterization With Stent, Hysterectomy Additional Past Surgical History / Comment(s): lapband, lapband removal 2010,D& Cs, sleeve gastrectomy 09/27/16 Past Anesthesia/Blood Transfusion Reactions: No Reported Reaction Additional Past Anesthesia/Blood Transfusion Reaction / Comm: no hx blood transfusion Date of Last Stent Placement:: 12/06/2015 Smoking Status: Never smoker - Past Family History Mother Family Medical History: Cancer Father Family Medical History: Diabetes Mellitus Surgical - Exam Vital Signs Temp Pulse Resp BP 98.5 F 65 16 136/66 10/23/16 14:06 10/23/16 14:06 10/23/16 14:06 10/23/16 14:06 - General well developed, no distress - Eyes PERRL - ENT normal pinna, normal mucosa - Neck no masses, no bruits - Respiratory normal expansion - Abdomen Abdomen: soft, non tender Bariatric Assessment & Plan Plan: The patient is status post sleeve gastric A. She's doing quite well. She will follow-up in one month. Her GERD symptoms are minimal will be observed. Bariatric Checklist Checklist: Plan: Checklist: EGD: 1. Hiatal hernia: 2. H. Pylori: HgbA1c: Vitamin D: Smoking: Never smoker Primary care physician referral: Derek Perez ([facility]) Psychiatry clearance: Cardiology clearance: Sleep study: Diet journal: VTE risk score: VTE risk level: Rehab needs at discharge:
== END ==
LOC: BARWHC3 13:39
PROVIDERS: ATTEND Surgery
DX: Z48.815 Encounter for surgical aftercare following surgery on the digestive system (principal); Z98.84 Bariatric surgery status; E66.01 Morbid (severe) obesity due to excess calories
CPT/HCPCS: 97803; 99211

== ENCOUNTER → 2017-01-08 | Outpatient (CLI) | payer OTHER ==
[2017-01-08 13:26] VITALS: BP 124/69; PULSE 60; TEMP 98.2; BMI 36.9
[2017-01-08 14:31] LABS: ALT 204 U/L (9-52); AST 167 U/L (14-36); Alkaline Phosphatase 250 U/L (38-126); Anion Gap 8 mmol/L; Blood Urea Nitrogen 20 mg/dL (7-17); Calcium 10.5 mg/dL (8.4-10.2); Carbon Dioxide 28 mmol/L (22-30); Chloride 104 mmol/L (98-107); Glucose 92 mg/dL (74-99); Non-African American GFR(MDRD) >60 (>60 ml/min/1.73 sqM); Potassium 4.3 mmol/L (3.5-5.1); Sodium 140 mmol/L (137-145); Total Bilirubin 0.7 mg/dL (0.2-1.3); Total Protein 7.7 g/dL (6.3-8.2)
[2017-01-08 14:35] LABS: CH 29.5; CHCM 32.2; HCT 42.4 % (34.0-46.0); HDW 2.35; HGB 13.7 gm/dL (11.4-16.0); MCH 29.8 pg (25.0-35.0); MCHC 32.4 g/dL (31.0-37.0); MCV 91.8 fL (80.0-100.0); Mean Platelet Volume 7.7; RBC 4.61 m/uL (3.80-5.40); RDW 13.6 % (11.5-15.5)
--- NOTE | 2017-01-08 15:37 | P.HPBAR ---
Bariatric H&P - History & Physicial H&P Date: 01/08/17 History & Physicial: Visit/CC: 3 month f/u Patient initial contact: Initial weight: 130.181 kg Initial weight in pounds: 287.00 Height: 5 ft 7 in Initial BMI: 44.9 Last weight: 244 Current weight: 107.002 kg Current weight in pounds: 235.90 Current BMI: 36.9 [place] body weight (based on NIH guidelines): 61.235 kg Excess body weight loss: 33.6% The patient is a 56 year-old F who presents for Bariatric Assessment. Patient presents today for sleeve gastrectomy follow-up. She lost another 9 pounds since her last visit. She's had some minimal GERD. Past Medical History Past Medical History: Diabetes Mellitus, GERD/Reflux, Hyperlipidemia, Hypertension Additional Past Medical History / Comment(s): Hx rapid heart rate,steroid injection July History of Any Multi-Drug Resistant Organisms: None Reported Past Surgical History: Bariatric Surgery, Cardiac Ablation, Heart Catheterization With Stent, Hysterectomy Additional Past Surgical History / Comment(s): lapband, lapband removal 2010,D& Cs, sleeve gastrectomy 09/27/16 Past Anesthesia/Blood Transfusion Reactions: No Reported Reaction Additional Past Anesthesia/Blood Transfusion Reaction / Comm: no hx blood transfusion Date of Last Stent Placement:: 12/06/2015 Past Psychological History: No Psychological Hx Reported Smoking Status: Never smoker Past Alcohol Use History: Rare Past Drug Use History: None Reported - Past Family History Mother Family Medical History: Cancer Father Family Medical History: Diabetes Mellitus Surgical - Exam Vital Signs Temp Pulse BP 98.2 F 60 124/69 01/08/17 13:20 01/08/17 13:20 01/08/17 13:20 - General well developed, no distress - Eyes PERRL - Abdomen Abdomen: soft, non tender Results - Labs 01/08/17 14:10 01/08/17 14:10 Abnormal Lab Results - Last 24 Hours (Table) 01/08/17 Range/Units 14:10 BUN 20 H (7-17) mg/dL Calcium 10.5 H (8.4-10.2) mg/dL AST 167 H (14-36) U/L ALT 204 H (9-52) U/L Alkaline Phosphatase 250 H (38-126) U/L Diabetes panel 01/08/17 Range/Units 14:10 Sodium 140 (137-145) mmol/L Potassium 4.3 (3.5-5.1) mmol/L Chloride 104 (98-107) mmol/L Carbon Dioxide 28 (22-30) mmol/L BUN 20 H (7-17) mg/dL Creatinine 0.62 (0.52-1.04) mg/dL Glucose 92 (74-99) mg/dL Calcium 10.5 H (8.4-10.2) mg/dL AST 167 H (14-36) U/L ALT 204 H (9-52) U/L Alkaline Phosphatase 250 H (38-126) U/L Total Protein 7.7 (6.3-8.2) g/dL Albumin 4.4 (3.5-5.0) g/dL Thyroid panel 01/08/17 Range/Units 14:10 TSH 0.606 (0.465-4.680) mIU/L Calcium panel 01/08/17 Range/Units 14:10 Calcium 10.5 H (8.4-10.2) mg/dL Albumin 4.4 (3.5-5.0) g/dL Pituitary panel 01/08/17 Range/Units 14:10 Sodium 140 (137-145) mmol/L Potassium 4.3 (3.5-5.1) mmol/L Chloride 104 (98-107) mmol/L Carbon Dioxide 28 (22-30) mmol/L BUN 20 H (7-17) mg/dL Creatinine 0.62 (0.52-1.04) mg/dL Glucose 92 (74-99) mg/dL Calcium 10.5 H (8.4-10.2) mg/dL TSH 0.606 (0.465-4.680) mIU/L Adrenal panel 01/08/17 Range/Units 14:10 Sodium 140 (137-145) mmol/L Potassium 4.3 (3.5-5.1) mmol/L Chloride 104 (98-107) mmol/L Carbon Dioxide 28 (22-30) mmol/L BUN 20 H (7-17) mg/dL Creatinine 0.62 (0.52-1.04) mg/dL Glucose 92 (74-99) mg/dL Calcium 10.5 H (8.4-10.2) mg/dL Total Bilirubin 0.7 (0.2-1.3) mg/dL AST 167 H (14-36) U/L ALT 204 H (9-52) U/L Alkaline Phosphatase 250 H (38-126) U/L Total Protein 7.7 (6.3-8.2) g/dL Albumin 4.4 (3.5-5.0) g/dL Bariatric Assessment & Plan Plan: Status post sleeve yesterday. Patient has had reasonable weight loss. Her GERD symptoms will be observed. Bariatric Checklist Checklist: Plan: Checklist: EGD: 1. Hiatal hernia: 2. H. Pylori: HgbA1c: Vitamin D: Smoking: Never smoker Primary care physician referral: Derek Perez ([facility]) Psychiatry clearance: Cardiology clearance: Sleep study: Diet journal: VTE risk score: VTE risk level: Rehab needs at discharge:
[2017-01-08 18:41] LABS: Iron Saturation 18.65 (12.00-45.00)
== END | disposition home or self-care (01) ==
LOC: BARWHC3 12:54
PROVIDERS: ATTEND Surgery
DX: E66.01 Morbid (severe) obesity due to excess calories (principal); E11.9 Type 2 diabetes mellitus without complications; K21.9 Gastro-esophageal reflux disease without esophagitis; E78.5 Hyperlipidemia, unspecified; I10 Essential (primary) hypertension; Z98.84 Bariatric surgery status
CPT/HCPCS: 36415; 80053; 82306; 83540; 83550; 84443; 85027; 97803; 99211

== ENCOUNTER → 2017-05-24 | Outpatient (CLI) | payer OTHER ==
--- NOTE | 2017-05-24 22:47 | MR ---
EXAMINATION TYPE: MR shoulder LT wo con DATE OF EXAM: 05/24/2017 COMPARISON: Outside left shoulder x-rays May 09, 2017 HISTORY: Lt shoulder pain x several years, no trauma TECHNIQUE: Multiplanar, multisequence imaging of the left shoulder is performed without contrast. FINDINGS: Rotator Cuff: There is increased signal subdeltoid/subacromial bursa. There is thinning and increased signal in the fibers of the supraspinatus tendon and to lesser degree infraspinatus tendon along the bursal surface. No full-thickness or retracted tear is evident. Subscapularis tendon is intact. Rota tor cuff muscle bulk is preserved. Acromioclavicular Joint: There is joint space loss and capsular hypertrophy at acromioclavicular join t. There is type II downsloping acromion with loss of inferior fat plane. Glenohumeral Joint: There is glenohumeral joint space loss. There is small joint effusion. No signifi cant spurring is seen. Labrum: Degenerative increased signal superior labrum, no discrete tear. Biceps Tendon: The long head of biceps is in normal location within bicipital groove. Bone marrow signal: Heterogeneity consistent with red marrow reconversion is present. Other: No additional significant abnormality is appreciated. IMPRESSION: 1. Tendinosis and partial bursal surface tears of the supraspinatus and to lesser degree infraspinatu s tendons. Moderate adjacent subdeltoid/subacromial fluid. 2. Type II downsloping acromion with suggestion of underlying impingement. 3. Acromioclavicular and glenohumeral humeral joint arthropathy as detailed above.
== END | disposition home or self-care (01) ==
LOC: RADMRIMAIN 14:57
PROVIDERS: ATTEND Orthopaedic Surgery
DX: M67.814 Other specified disorders of tendon, left shoulder (principal); S46.812A Strain of other muscles, fascia and tendons at shoulder and upper arm level, left arm, initial encounter; M19.012 Primary osteoarthritis, left shoulder

== ENCOUNTER → 2017-06-04 | Outpatient (CLI) | payer OTHER ==
[2017-06-04 13:12] VITALS: BP 147/77; PULSE 62; RESP 16; TEMP 97.9; BMI 34.2
[2017-06-04 14:02] LABS: HCT 40.2 % (34.0-46.0); HGB 13.1 gm/dL (11.4-16.0); MCH 30.1 pg (25.0-35.0); MCHC 32.6 g/dL (31.0-37.0); MCV 92.3 fL (80.0-100.0); Mean Platelet Volume 7.2; Platelet Count 184 k/uL (150-450); RBC 4.36 m/uL (3.80-5.40); RDW 13.2 % (11.5-15.5); WBC 5.5 k/uL (3.8-10.6)
[2017-06-04 14:24] LABS: ALT 99 U/L (9-52); AST 70 U/L (14-36); Albumin 3.9 g/dL (3.5-5.0); Alkaline Phosphatase 144 U/L (38-126); Anion Gap 15 mmol/L; Blood Urea Nitrogen 18 mg/dL (7-17); Carbon Dioxide 27 mmol/L (22-30); Chloride 106 mmol/L (98-107); Glucose 107 mg/dL (74-99); Potassium 4.7 mmol/L (3.5-5.1); Sodium 148 mmol/L (137-145); Total Bilirubin 0.4 mg/dL (0.2-1.3); Total Protein 6.6 g/dL (6.3-8.2)
[2017-06-04 19:10] LABS: Iron Saturation 27.74 (12.00-45.00)
[2017-06-04 19:20] LABS: Vitamin D 25 Hydroxy 32.4 ng/mL (30.0-100.0)
--- NOTE | 2017-06-21 14:34 | P.HPBAR ---
Bariatric H&P - History & Physicial H&P Date: 06/04/17 History & Physicial: Visit/CC: sleeve follow-up Patient initial contact: Initial weight: 130.181 kg Initial weight in pounds: 287.00 Height: 5 ft 7 in Initial BMI: 44.9 Last weight: Current weight: 99.138 kg Current weight in pounds: 218.56 Current BMI: 34.2 [place] body weight (based on NIH guidelines): 61.235 kg Excess body weight loss: 45.0% The patient is a 57 year-old F who presents for Bariatric Assessment.patient presents today for sleeve gastrectomy follow-up. She is lost 18 pounds since her last visit. She's had some mild GERD. Past Medical History Past Medical History: Diabetes Mellitus, GERD/Reflux, Hyperlipidemia, Hypertension Additional Past Medical History / Comment(s): Hx rapid heart rate,steroid injection July History of Any Multi-Drug Resistant Organisms: None Reported Past Surgical History: Bariatric Surgery, Cardiac Ablation, Heart Catheterization With Stent, Hysterectomy Additional Past Surgical History / Comment(s): lapband, lapband removal 2010,D& Cs, sleeve gastrectomy 09/27/16 Past Anesthesia/Blood Transfusion Reactions: No Reported Reaction Additional Past Anesthesia/Blood Transfusion Reaction / Comm: no hx blood transfusion Date of Last Stent Placement:: 12/06/2015 Smoking Status: Never smoker - Past Family History Mother Family Medical History: Cancer, Deep Vein Thrombosis (DVT) Father Family Medical History: Diabetes Mellitus Surgical - Exam Vital Signs Temp Pulse Resp BP 97.9 F 62 16 147/77 06/04/17 13:09 06/04/17 13:09 06/04/17 13:09 06/04/17 13:09 - General well developed, no distress - Abdomen Abdomen: soft, non tender Results - Labs 06/04/17 13:41 06/04/17 13:41 Bariatric Assessment & Plan Plan: status post sleeve gastrectomy. Patient has had excellent weight loss. She'll follow up in 3 months for recheck. Her GERD symptoms are minimal and will be observed. Bariatric Checklist Checklist: Plan: Checklist: EGD: 1. Hiatal hernia: 2. H. Pylori: HgbA1c: Vitamin D: Smoking: Never smoker Primary care physician referral: Derek Perez ([facility]) Psychiatry clearance: Cardiology clearance: Sleep study: Diet journal: VTE risk score: VTE risk level: Rehab needs at discharge:
== END | disposition home or self-care (01) ==
LOC: BARWHC3 12:57
PROVIDERS: ATTEND Surgery
DX: Z09 Encounter for follow-up examination after completed treatment for conditions other than malignant neoplasm (principal); K21.9 Gastro-esophageal reflux disease without esophagitis; E11.9 Type 2 diabetes mellitus without complications; E78.5 Hyperlipidemia, unspecified; I10 Essential (primary) hypertension; D50.8 Other iron deficiency anemias; E45 Retarded development following protein-calorie malnutrition; E55.9 Vitamin D deficiency, unspecified; Z98.84 Bariatric surgery status; Z98.61 Coronary angioplasty status
CPT/HCPCS: 36415; 80053; 82306; 83540; 83550; 84443; 85027; 97803; 99211

== ENCOUNTER → 2017-07-18 | Outpatient (CLI) | payer OTHER ==
--- NOTE | 2017-07-19 13:51 | MM ---
Reason for exam: screening (asymptomatic). Last mammogram was performed 1 year ago. History: Patient is postmenopausal. Family history of breast cancer in mother at age 72. Benign left US cyst aspiration of the left breast, January 12, 2006. Benign excisional biopsy of the left breast, December 30, 1999. Physical Findings: A clinical breast exam by your physician is recommended on an annual basis and results should be correlated with mammographic findings. MG 3D Screening Mammo W/Cad Bilateral CC and MLO view(s) were taken. Prior study comparison: July 17, 2016, bilateral MG 3d screening mammo w/cad. July 16, 2015, bilateral MG 3d screening mammo w/cad. The breast tissue is heterogeneously dense. This may lower the sensitivity of mammography. Stable benign calcifications. No significant changes when compared with prior studies. ASSESSMENT: Benign, BI-RAD 2 RECOMMENDATION: Routine screening mammogram of both breasts in 1 year.
== END | disposition home or self-care (01) ==
LOC: RADMAMWWP 10:01
PROVIDERS: ATTEND Family Medicine
DX: Z12.31 Encounter for screening mammogram for malignant neoplasm of breast (principal)
CPT/HCPCS: 77063; 77067

== ENCOUNTER 2017-07-19 05:47 | Day surgery (SDC) | payer OTHER ==
[2017-07-11 14:24] VITALS: BMI 33.6
--- NOTE | 2017-07-18 20:28 | HP ---
HISTORY AND PHYSICAL REASON FOR ADMISSION: Surgery 07/19/2017 HISTORY OF PRESENT ILLNESS: Tish Dumont is a 57-year-old patient seen with progressive left shoulder pain. After treatment options were discussed with her, she elected to proceed with arthroscopy. Consent regarding the procedure was obtained. Medical clearance was provided by Derek ZAPATA. PAST MEDICAL HISTORY: [id number] diabetes, hypertension, hyperlipidemia, asthma. PAST SURGICAL HISTORY: D and C, hysterectomy, and lap band surgery. MEDICATIONS: Metformin, glipizide, Lasix, Actos, Lipitor, losartan, metoprolol, Zyrtec. ALLERGIES: PENICILLIN. SOCIAL HISTORY: Patient denies current tobacco use. PHYSICAL EXAMINATION: Evaluation left shoulder: Flexion is 120 degrees, abduction is 110 degrees. External rotation is 20 degrees with weakness. There is tenderness along the anterior lateral acromion rotator cuff insertion site. Positive impingement sign at 90 degrees. Drop- arm sign is positive. Distal neurovascular exam is intact. Left shoulder radiographs revealed a type 2 anterior acromion, evidence for acromioclavicular joint osteoarthritis and calcific changes of the rotator cuff tendon consistent with calcific tendinitis. An MRI left shoulder revealed a type 2 anterior acromion acromioclavicular joint osteoarthritis and rotator cuff tendon tear. IMPRESSION: 1. Left shoulder impingement with rotator cuff tear. 2. Left shoulder acromioclavicular joint osteoarthritis. PLAN: Left shoulder arthroscopy, subacromial decompression, probable arthroscopic rotator cuff repair, possible Jeff procedure and debridement. Surgery scheduled for 07/19/17. MMODL / IJN: [id number] /
[~2017-07-19 05:47] MED LIST changes: -HYDROmorphone 1 MG/ML 1 ML SYRINGE IVP PRN; +LACTATED RINGERS 1,000 ML IV SCH; -ONDANSETRON 4 MG/2 ML VIAL IVP ONE; -ceFAZolin 3 GM in SODIUM CHLORIDE 0.9% 100 ML IVPB ONE; +ceFAZolin IN SWFI 2 GM/20 ML SYRINGE IVP ONE; +fentaNYL (PF) 50 MCG/ML 2 ML AMP IV PRN
[2017-07-19 06:43] LABS: Glucose,Whole Blood 99 mg/dL (75-99)
[2017-07-19] MEDS ORDERED: MIDAZOLAM 2 MG/2 ML VIAL ONE (06:47)
[2017-07-19] MEDS ORDERED: PROPOFOL 10 MG/ML 20 ML VIAL IV ONE (07:28)
[2017-07-19] MEDS ORDERED: ePHEDrine SULFATE/0.9% NACL/PF 50 MG/5 ML SYRINGE IV ONE (07:28)
[2017-07-19] MEDS ORDERED: ROPIVACAINE 5 MG/ML 30 ML VIAL ONE (07:28)
[2017-07-19] MEDS ORDERED: LIDOCAINE 1% INJ 10MG/ML (20 ML MDV) ONE (07:28)
[2017-07-19] MEDS ORDERED: fentaNYL (PF) 50 MCG/ML 2 ML AMP ONE (07:28)
[2017-07-19] MEDS ORDERED: LIDOCAINE 2%-EPI 1:100,000 20 ML VIAL ONE (07:28)
[2017-07-19] MEDS ORDERED: SUCCINYLCHOLINE CHLORIDE 100 MG/5 ML SYR IV ONE (07:28)
--- NOTE | 2017-07-19 07:41 | P.ONQ ---
Anesthesiology Proc Note - PNB - Peripheral Nerve Block Performed Left Interscalene Single Time Out Performed: Yes (7:12 am) Procedure Start Time: :13 Procedure Stop Time: : Indication: Acute Post-Operative Pain, Requested by physician Sedation Type: Sedate with meaningful contact maintained Preparation: Sterile Prep Position: Supine Catheter: None Needle Types: Facet Needle Size: 50mm (2") Needle Gauge: 20 Technique: Ultrasound Injectate: 0.5% Ropivacaine (see comment for volume) (30 mls) Blood Aspirated: No Pain Paresthesia on Injection Noted: No Resistance on Injection: Normal Events: Uneventful and Well Tolerated
[2017-07-19] MEDS ORDERED: LACTATED RINGERS 1,000 ML IV ONE (09:29)
[2017-07-19 09:47] VITALS: TEMP 97.4
--- NOTE | 2017-07-19 09:51 | P.OP ---
Date of Procedure: 07/19/17 Preoperative Diagnosis: Left shoulder impingement Postoperative Diagnosis: 1. Left shoulder rotator cuff tear 2. Left shoulder impingement 3. Left shoulder acromioclavicular joint osteoarthritis 4. Left shoulder partial biceps tendon tear 5. Left shoulder superficial labral tear Procedure(s) Performed: 1. Left shoulder arthroscopic rotator cuff repair 2. Left shoulder arthroscopic subacromial decompression 3. Left shoulder arthroscopic Jeff procedure 4. Left shoulder arthroscopic biceps tenotomy 5. Left shoulder arthroscopic debridement labral tear Implants: 2-Arthrex swivel lock anchors Anesthesia: GETA, regional (Interscalene block) Surgeon: Ralph Shaw Checkman #1: Manish Kinney Estimated Blood Loss (ml): 18 Pathology: none sent Condition: stable Disposition: PACU Indications for Procedure: 57-year-old patient seen with progressive left shoulder pain. After having treatment options discussed, she elected to proceed with arthroscopy. Operative Findings: see description of procedure Description of Procedure: Patient underwent a shoulder block by department of anesthesia. The patient was then taken to the operative suite. The patient underwent a general anesthetic by the department of anesthesia. The patient was placed into a lateral position and secured. There was appropriate padding of the bony prominence. Left shoulder was then prepped and draped in normal sterile orthopedic fashion. We placed the extremity in 10 pounds of longitudinal traction. A posterior incision was now made for a posterior working portal site. The trocar and cannula were inserted into the glenohumeral joint. Arthroscopy was initiated. Spinal needle was now inserted anteriorly, to ascertain the anterior working portal site. An incision was now made in that area, a trocar was inserted followed by a probe. There was partial tearing long head biceps tendon with hyperemia. There was some superficial tearing of the superior labrum present as well. There was no significant chondromalacia or osteochondral deficits. I performed an arthroscopic biceps tenotomy. I debrided that superficial labral tear down to stable tissue. The residual labrum was stable. Instruments now removed from glenohumeral joint. Utilizing the posterior working portal site, the trocar and cannula were inserted into the subacromial space. Arthroscopy initiated. I made an incision 2 fingerbreadths lateral to the acromion. I introduced my trocar followed by my ArthroCare ablator. I now began ablating thick subacromial bursal tissue, which exposed the undersurface of the anterior acromion. This was diminished subacromial space. There was a very prominent anterior acromion. A motorized bur was introduced and a subacromial decompression was performed. I also excised some osteophytes off the inferior aspect of the distal clavicle. The AC joint was visualized and noted to be fairly arthritic. Our motorized bur was introduced in the anterior portal site and a Jeff procedure was performed without difficulty, decompressing the AC joint nicely. I turned my attention to the rotator cuff. I began probing the tendon and found a large area of calcific tendinitis. Once I debrided out the calcific tendinitis we noted a full-thickness tear. I now noticed some calcific tendinitis more anteriorly to the distal supraspinatus which I debrided out and another small full-thickness tear was noted there. The posterior portion of the tear measuring about 1.5 cm while the anterior was just under 1 cm. After thorough probing I could not appreciate any additional areas of calcific tendinitis. I now abraded the footprint with a motorized bur. I passed 2 everted mattress sutures for the posterior tear and 1 everted mattress suture for the more anterior tear. I repaired both tears utilizing swivel lock anchors compressing the tendon along the footprint very nicely in both areas. Residual suture limbs were clipped. The repair was probed and found to be stable. I injected 1 mL UCT intra- articular. Instruments now removed from the portal sites. All portal sites were approximated with nylon suture. Sterile dressings were applied followed by a shoulder immobilizer. 2 Arthrex SwiveLock anchors were utilized as implants. Steve WORTHY assisted with the procedure. The patient was awakened, transferred to a bed, and taken to recovery in stable condition.
[2017-07-19 09:57] VITALS: RESP 16
[2017-07-19 10:54] VITALS: BP 138/87; PULSE 56
== END 2017-07-19 11:25 | disposition home or self-care (01) ==
LOC: OR 05:47
PROVIDERS: ATTEND Orthopaedic Surgery
DX: M75.102 Unspecified rotator cuff tear or rupture of left shoulder, not specified as traumatic (principal); M75.42 Impingement syndrome of left shoulder; M19.012 Primary osteoarthritis, left shoulder; S46.112A Strain of muscle, fascia and tendon of long head of biceps, left arm, initial encounter; S43.432A Superior glenoid labrum lesion of left shoulder, initial encounter; X58.XXXA Exposure to other specified factors, initial encounter; I25.10 Atherosclerotic heart disease of native coronary artery without angina pectoris; Z95.5 Presence of coronary angioplasty implant and graft; K21.9 Gastro-esophageal reflux disease without esophagitis; I10 Essential (primary) hypertension; E78.5 Hyperlipidemia, unspecified; J45.909 Unspecified asthma, uncomplicated; E11.9 Type 2 diabetes mellitus without complications; Z79.84 Long term (current) use of oral hypoglycemic drugs; Z79.82 Long term (current) use of aspirin; Z79.899 Other long term (current) drug therapy; Z88.0 Allergy status to penicillin
CPT/HCPCS: 64415

== ENCOUNTER 2017-09-08 11:09 | Emergency (ER) | payer OTHER ==
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
--- NOTE | 2017-09-08 12:04 | XR ---
EXAMINATION TYPE: XR hand complete RT , 3 VIEWS DATE OF EXAM ORDERED: 09/08/2017 HISTORY: Pain. COMPARISON: None. FINDINGS: There is a well-corticated ossific density adjacent to the ulnar styloid which may relate to previous trauma. No acute fracture, dislocation or other bony abnormality is seen. IMPRESSION: NO ACUTE OSSEOUS LESION.
--- NOTE | 2017-09-08 12:04 | XR ---
EXAMINATION TYPE: XR chest 2V DATE OF EXAM: 09/08/2017 HISTORY: cough. REFERENCE: NONE. FINDINGS: The lungs are clear. Pleural space are clear. The heart is not enlarged. IMPRESSION: NO ACTIVE CARDIOPULMONARY ABNORMALITY.
--- NOTE | 2017-09-08 12:05 | XR ---
EXAMINATION TYPE: XR shoulder complete LT , 3 VIEWS DATE OF EXAM ORDERED: 09/08/2017 HISTORY: Pain. COMPARISON: None. FINDINGS: No fracture or dislocation is seen. There is evidence of chronic calcific tendinosis of th e supraspinatus tendon. IMPRESSION: NO ACUTE OSSEOUS LESION.
[2017-09-08 12:50] VITALS: BP 138/80; PULSE 91; RESP 16; TEMP 98.2
== END 2017-09-08 12:40 | disposition home or self-care (01) ==
LOC: EC 11:09
DX: S46.912A Strain of unspecified muscle, fascia and tendon at shoulder and upper arm level, left arm, initial encounter (principal); S20.212A Contusion of left front wall of thorax, initial encounter; M79.644 Pain in right finger(s); M79.674 Pain in right toe(s); K21.9 Gastro-esophageal reflux disease without esophagitis; E78.5 Hyperlipidemia, unspecified; I10 Essential (primary) hypertension; Z98.84 Bariatric surgery status; Z95.5 Presence of coronary angioplasty implant and graft; Z98.890 Other specified postprocedural states; Z79.82 Long term (current) use of aspirin; Z79.899 Other long term (current) drug therapy; Z88.0 Allergy status to penicillin; Z91.048 Other nonmedicinal substance allergy status; V43.52XA Car driver injured in collision with other type car in traffic accident, initial encounter; Y92.89 Other specified places as the place of occurrence of the external cause; R05 Cough
CPT/HCPCS: 71046; 99283; 99284

== ENCOUNTER → 2017-09-17 | Outpatient (CLI) | payer OTHER ==
[2017-09-17 14:36] VITALS: BMI 33.1
--- NOTE | 2017-09-17 14:53 | P.HPBAR ---
Bariatric H&P - History & Physicial H&P Date: 09/17/17 History & Physicial: Visit/CC: Patient initial contact: Initial weight: 130.181 kg Initial weight in pounds: Height: 5 ft 7 in Initial BMI: Last weight: 218.9 Current weight: 96.026 kg Current weight in pounds: 211.7 Current BMI: 33.1 [place] body weight (based on NIH guidelines): Excess body weight loss: The patient is a 57 year-old F who presents for Bariatric Assessment. Patient presents today for sleeve gastric a follow-up. She has some minimal GERD. Past Medical History Past Medical History: Diabetes Mellitus, GERD/Reflux, Hyperlipidemia, Hypertension Additional Past Medical History / Comment(s): Hx rapid heart rate,steroid injection July History of Any Multi-Drug Resistant Organisms: None Reported Past Surgical History: Bariatric Surgery, Cardiac Ablation, Heart Catheterization With Stent, Hysterectomy Additional Past Surgical History / Comment(s): lapband, lapband removal 2010,D& Cs, sleeve gastrectomy 09/27/16 Past Anesthesia/Blood Transfusion Reactions: No Reported Reaction Additional Past Anesthesia/Blood Transfusion Reaction / Comm: no hx blood transfusion Date of Last Stent Placement:: 12/06/2015 Past Psychological History: No Psychological Hx Reported Smoking Status: Never smoker Past Alcohol Use History: Rare Past Drug Use History: None Reported - Past Family History Mother Family Medical History: Cancer, Deep Vein Thrombosis (DVT) Father Family Medical History: Diabetes Mellitus Surgical - Exam - General well developed, no distress - Eyes PERRL - ENT normal pinna - Neck no masses - Respiratory normal expansion - Cardiovascular Rhythm: regular - Abdomen Abdomen: soft, non tender Bariatric Assessment & Plan Plan: Status post sleeve yesterday. Patient is doing quite well. Her GERD is minimal be observed. She'll follow-up in one month. Bariatric Checklist Checklist: Plan: Checklist: EGD: 1. Hiatal hernia: 2. H. Pylori: HgbA1c: Vitamin D: Smoking: Never smoker Primary care physician referral: Derek Perez ([facility]) Psychiatry clearance: Cardiology clearance: Sleep study: Diet journal: VTE risk score: VTE risk level: Rehab needs at discharge:
[2017-09-17 15:13] VITALS: BP 144/76; PULSE 82; TEMP 98.2
== END | disposition home or self-care (01) ==
LOC: BARWHC3 13:14
PROVIDERS: ATTEND Surgery
DX: Z48.815 Encounter for surgical aftercare following surgery on the digestive system (principal); E66.01 Morbid (severe) obesity due to excess calories; K21.9 Gastro-esophageal reflux disease without esophagitis; Z98.84 Bariatric surgery status; Z68.33 Body mass index [BMI] 33.0-33.9, adult
CPT/HCPCS: 97803; 99211

== ENCOUNTER → 2017-10-22 | Outpatient (CLI) | payer OTHER ==
[2017-10-22 13:42] VITALS: BP 133/64; PULSE 82; TEMP 98.2; BMI 32.9
--- NOTE | 2017-10-22 15:52 | P.HPBAR ---
Bariatric H&P - History & Physicial H&P Date: 10/22/17 History & Physicial: Visit/CC: one year follow up sleeve Patient initial contact: Initial weight: 130.181 kg Initial weight in pounds: 287.00 Height: 5 ft 7 in Initial BMI: 44.9 Last weight: Current weight: 95.39 kg Current weight in pounds: 210.30 Current BMI: 32.9 [place] body weight (based on NIH guidelines): 61.235 kg Excess body weight loss: 50.4% The patient is a 57 year-old F who presents for Bariatric Assessment. The patient has had some minimal abdominal pain. She had a recent rise in her liver function tests. Her SHOWS EVIDENCE OF CHOLELITHIASIS. HER CAT SCAN FROM 2 YEARS AGO WAS REVIEWED AND THERE IS EVIDENCE OF GALLSTONES. CURRENTLY PATIENT STATES SHE HAS NO ABDOMINAL PAIN. Past Medical History Past Medical History: Diabetes Mellitus, GERD/Reflux, Hyperlipidemia, Hypertension Additional Past Medical History / Comment(s): Hx rapid heart rate,steroid injection July History of Any Multi-Drug Resistant Organisms: None Reported Past Surgical History: Bariatric Surgery, Cardiac Ablation, Heart Catheterization With Stent, Hysterectomy, Orthopedic Surgery Additional Past Surgical History / Comment(s): lapband, lapband removal 2010,D& Cs, sleeve gastrectomy 09/27/16 left rotator cuff surgery Past Anesthesia/Blood Transfusion Reactions: No Reported Reaction Additional Past Anesthesia/Blood Transfusion Reaction / Comm: no hx blood transfusion Date of Last Stent Placement:: 12/06/2015 Past Psychological History: No Psychological Hx Reported Smoking Status: Never smoker Past Alcohol Use History: Rare Past Drug Use History: None Reported - Past Family History Mother Family Medical History: Cancer, Deep Vein Thrombosis (DVT) Father Family Medical History: Diabetes Mellitus Surgical - Exam Vital Signs Temp Pulse BP 98.2 F 82 133/64 10/22/17 13:40 10/22/17 13:40 10/22/17 13:40 - General well developed, no distress - Eyes PERRL - ENT normal pinna - Neck no masses - Respiratory normal expansion - Cardiovascular Rhythm: regular - Abdomen Abdomen: soft, non tender Bariatric Assessment & Plan Plan: Cholelithiasis. Patient will be scheduled for laparoscopic cholecystectomy. Bariatric Checklist Checklist: Plan: Checklist: EGD: 1. Hiatal hernia: 2. H. Pylori: HgbA1c: Vitamin D: Smoking: Never smoker Primary care physician referral: Derek Perez ([facility]) Psychiatry clearance: Cardiology clearance: Sleep study: Diet journal: VTE risk score: VTE risk level: Rehab needs at discharge:
== END | disposition home or self-care (01) ==
LOC: BARWHC3 12:49
PROVIDERS: ATTEND Surgery
DX: Z48.815 Encounter for surgical aftercare following surgery on the digestive system (principal); K80.20 Calculus of gallbladder without cholecystitis without obstruction; E66.01 Morbid (severe) obesity due to excess calories; Z68.32 Body mass index [BMI] 32.0-32.9, adult; Z98.84 Bariatric surgery status; Z90.710 Acquired absence of both cervix and uterus; Z98.890 Other specified postprocedural states
CPT/HCPCS: 97803; 99211

== ENCOUNTER 2017-12-17 06:33 | Day surgery (SDC) | payer OTHER ==
[2017-12-10 16:08] VITALS: BMI 32.7
[~2017-12-17 06:33] MED LIST changes: +HEPARIN SODIUM,PORCINE 5,000 UNIT/ML 1 ML VIAL SQ ONE; +HYDROmorphone 1 MG/ML 1 ML SYRINGE IVP PRN; +LIDOCAINE 1% 20 ML VIAL (10MG/ML) FOR IV START INTRADERMA PRN; -MIDAZOLAM 2 MG/2 ML VIAL IV PRN; +ONDANSETRON 4 MG/2 ML VIAL IVP ONE; -fentaNYL (PF) 50 MCG/ML 2 ML AMP IV PRN
[2017-12-17 07:06] LABS: Glucose,Whole Blood 125 mg/dL (75-99)
--- NOTE | 2017-12-17 07:55 | P.GSHP ---
History of Present Illness H&P Date: 12/17/17 Chief Complaint: Right upper quadrant pain This a 57-year-old female who presents today for laparoscopic cholecystectomy. Patient's had complaints of right quadrant pain she is workup found evidence of cholecystitis. Past Medical History Past Medical History: Diabetes Mellitus, GERD/Reflux, Hyperlipidemia, Hypertension Additional Past Medical History / Comment(s): past hx. rapid heart rate, no meds for diabetes since bariatric surg., gallstones History of Any Multi-Drug Resistant Organisms: None Reported Past Surgical History: Bariatric Surgery, Cardiac Ablation, Heart Catheterization With Stent, Hysterectomy, Orthopedic Surgery Additional Past Surgical History / Comment(s): lapband, lapband removal 2010,D& Cs, sleeve gastrectomy 09/27/16, left rotator cuff surgery Past Anesthesia/Blood Transfusion Reactions: No Reported Reaction Additional Past Anesthesia/Blood Transfusion Reaction / Comment(s): no hx blood transfusion Date of Last Stent Placement:: 12/06/2015 Smoking Status: Never smoker - Past Family History Mother Family Medical History: Cancer, Deep Vein Thrombosis (DVT) Father Family Medical History: Diabetes Mellitus Medications and Allergies Home Medications Medication Instructions Recorded Confirmed Type Aspirin 81 mg PO HS 06/07/15 12/17/17 History Atorvastatin [Lipitor] 80 mg PO HS #30 tab 12/04/15 12/10/17 Rx Metoprolol Tartrate [Lopressor] 25 mg PO BID #60 tab 12/04/15 12/17/17 Rx Nitroglycerin Sl Tabs [Nitrostat] 0.4 mg SUBLINGUAL Q5M PRN #100 tab 12/04/15 Rx Omeprazole [PriLOSEC] 20 mg PO Q48H PRN 12/12/16 12/10/17 History Cetirizine HCl [Zyrtec] 10 mg PO QAM 07/11/17 12/10/17 History Optisource Bariatric Vitamin 2 tab PO BID 12/10/17 12/17/17 History Allergies Allergy/AdvReac Type Severity Reaction Status Date / Time Penicillins Allergy Unknown Rash/Hives Verified 12/17/17 06:54 adhesive tape Allergy skin Verified 12/17/17 06:54 redness and itching,"paper tape ok" Surgical - Exam Vital Signs Temp Pulse Resp BP Pulse Ox 97.2 F L 77 16 165/114 97 12/17/17 07:01 12/17/17 07:01 12/17/17 07:01 12/17/17 07:01 12/17/17 07:01 - General well developed, no distress - Eyes PERRL - ENT normal pinna - Neck no masses - Respiratory normal expansion - Cardiovascular Rhythm: regular - Abdomen Mild right upper quadrant pain Abdomen: soft, non tender Results - Labs Abnormal Lab Results - Last 24 Hours (Table) 12/17/17 Range/Units 07:04 POC Glucose (mg/dL) 125 H (75-99) mg/dL Assessment and Plan Assessment: Chronic cholecystitis. We will perform laparoscopic cholecystectomy.
[2017-12-17] MEDS ORDERED: SUCCINYLCHOLINE CHLORIDE 100 MG/5 ML SYR IV ONE (08:00)
[2017-12-17] MEDS ORDERED: LIDOCAINE 1% INJ 10MG/ML (20 ML MDV) ONE (08:00)
[2017-12-17] MEDS ORDERED: PROPOFOL 10 MG/ML 20 ML VIAL IV ONE (08:00)
[2017-12-17] MEDS ORDERED: NEOSTIGMINE 1 MG/ML 10 ML VIAL ONE (08:00)
[2017-12-17] MEDS ORDERED: KETOROLAC 30 MG/ML 1 ML VIAL ONE (08:00)
[2017-12-17] MEDS ORDERED: GLYCOPYRROLATE 0.2 MG/ML 2 ML VIAL ONE (08:00)
[2017-12-17] MEDS ORDERED: ROCURONIUM BROMIDE 10 MG/ML 10 ML VIAL IV ONE (08:00)
[2017-12-17] MEDS ORDERED: fentaNYL (PF) 50 MCG/ML 2 ML AMP ONE (08:00)
[2017-12-17] MEDS ORDERED: MIDAZOLAM 2 MG/2 ML VIAL ONE (08:00)
[2017-12-17] MEDS ORDERED: BUPIVACAIN-EPI 0.25%-1:200,000 30 ML VIAL SQ ONE ×2 (08:20→08:26)
[2017-12-17] MEDS ORDERED: LACTATED RINGERS 1,000 ML IV ONE (08:42)
[2017-12-17 09:18] VITALS: TEMP 97.4
[2017-12-17 09:25] LABS: Glucose,Whole Blood 189 mg/dL (75-99)
[2017-12-17 10:41] VITALS: BP 160/74; PULSE 49; RESP 18
--- NOTE | 2018-01-27 13:11 | P.OP ---
Date of Procedure: 12/17/17 Preoperative Diagnosis: Cholecystitis Postoperative Diagnosis: Cholecystitis Procedure(s) Performed: Laparoscopic cholecystectomy Anesthesia: SAMM Surgeon: Flavio Garcia Estimated Blood Loss (ml): 5 Pathology: other (Gallbladder) Condition: stable Disposition: PACU Description of Procedure: The patient was placed on the operating table. The patient received a general endotracheal tube anesthesia. The patients abdomen was prepped and draped in the usual sterile fashion. Through an infraumbilical stab incision, the fascia of the anterior abdominal wall was grasped with a pair of Kochers and then the Veress needle was placed in the peritoneal cavity. Position of the Veress needle was confirmed with positive drop test. The abdomen was then insufflated. After adequate insufflation, the 10 mm trocar was placed in the peritoneal cavity. Following this the laparoscope was placed in the peritoneal cavity. The patient was placed in the head-up, right side up position and then a 5 mm trocar was placed in the right lateral and right subcostal position under direct visualization. A 8 mm trocar was placed in the epigastric position. The gallbladder was grasped in the fundus and infundibulum. Traction on the gallbladder was placed in the lateral and the cephalad positions. The triangle of Calot was visualized.. The cystic duct was bluntly dissected until the union of the cystic duct and common bile duct was seen. The cystic duct was then divided and sealed with the Harmonic scissors. A PDS Endoloop was then placed throughout the cystic duct stump. The cystic artery divided and sealed with the Harmonic scissors. The gallbladder was then removed from the liver bed using Harmonic scissors. The gallbladder was then extracted through the epigastric port site. Operative field was checked for any bleeding spots and Harmonic scissors was used to coagulate the liver bed. The abdomen was irrigated. The trocars were removed. The skin was closed using interrupted 3-0 Vicryl suture. Dermabond dressing were applied. The patient tolerated the procedure well.
== END 2017-12-17 10:46 | disposition home or self-care (01) ==
LOC: OR 06:33
PROVIDERS: ATTEND Surgery
DX: K80.10 Calculus of gallbladder with chronic cholecystitis without obstruction (principal); E11.9 Type 2 diabetes mellitus without complications; K21.9 Gastro-esophageal reflux disease without esophagitis; E78.5 Hyperlipidemia, unspecified; I10 Essential (primary) hypertension; I25.10 Atherosclerotic heart disease of native coronary artery without angina pectoris; I49.9 Cardiac arrhythmia, unspecified; Z95.5 Presence of coronary angioplasty implant and graft; Z79.82 Long term (current) use of aspirin; Z79.899 Other long term (current) drug therapy; Z88.0 Allergy status to penicillin; Z91.048 Other nonmedicinal substance allergy status; Z98.84 Bariatric surgery status; Z90.3 Acquired absence of stomach [part of]
CPT/HCPCS: 88304; 47562; J2250; J1644; J1100; J2710; J2405; J2001; J3010; J1885; J0330; J2704; J0690

== ENCOUNTER → 2017-12-24 | Outpatient (CLI) | payer OTHER ==
[2017-12-24 13:50] VITALS: BP 104/66; PULSE 67; TEMP 98.1; BMI 33.2
--- NOTE | 2017-12-24 16:49 | P.HPBAR ---
Bariatric H&P - History & Physicial H&P Date: 12/24/17 History & Physicial: Visit/CC: post op follow up Patient initial contact: Initial weight: 130.181 kg Initial weight in pounds: 287.00 Height: 5 ft 7 in Initial BMI: 44.9 Last weight: Current weight: 96.162 kg Current weight in pounds: 212.00 Current BMI: 33.2 [place] body weight (based on NIH guidelines): 61.235 kg Excess body weight loss: 49.3% The patient is a 57 year-old F who presents for Bariatric Assessment. Patient presents today for sleeve gastrectomy follow-up. She had her cholestatic me last month. She feels well. Past Medical History Past Medical History: Diabetes Mellitus, GERD/Reflux, Hyperlipidemia, Hypertension Additional Past Medical History / Comment(s): past hx. rapid heart rate, no meds for diabetes since bariatric surg., gallstones History of Any Multi-Drug Resistant Organisms: None Reported Past Surgical History: Bariatric Surgery, Cardiac Ablation, Cholecystectomy, Heart Catheterization With Stent, Hysterectomy, Orthopedic Surgery Additional Past Surgical History / Comment(s): lapband, lapband removal 2010,D& Cs, sleeve gastrectomy 09/27/16, left rotator cuff surgery lap choly 02-16-17 Past Anesthesia/Blood Transfusion Reactions: No Reported Reaction Additional Past Anesthesia/Blood Transfusion Reaction / Comm: no hx blood transfusion Date of Last Stent Placement:: 12/06/2015 Past Psychological History: No Psychological Hx Reported Smoking Status: Never smoker Past Alcohol Use History: Rare Past Drug Use History: None Reported - Past Family History Mother Family Medical History: Cancer, Deep Vein Thrombosis (DVT) Father Family Medical History: Diabetes Mellitus Surgical - Exam Vital Signs Temp Pulse BP 98.1 F 67 104/66 12/24/17 13:47 12/24/17 13:47 12/24/17 13:47 - General well developed, no distress - Eyes PERRL - ENT normal pinna - Neck no masses - Respiratory normal expansion - Cardiovascular Rhythm: regular - Abdomen Abdomen: soft, non tender Bariatric Assessment & Plan Plan: Status post cholestatic. Patient did quite well. She'll follow-up in 4 weeks. Bariatric Checklist Checklist: Plan: Checklist: EGD: 1. Hiatal hernia: 2. H. Pylori: HgbA1c: Vitamin D: Smoking: Never smoker Primary care physician referral: Derek Perez ([facility]) Psychiatry clearance: Cardiology clearance: Sleep study: Diet journal: VTE risk score: VTE risk level: Rehab needs at discharge:
== END | disposition home or self-care (01) ==
LOC: BARWHC3 12:44
PROVIDERS: ATTEND Surgery
DX: Z48.815 Encounter for surgical aftercare following surgery on the digestive system (principal); Z98.84 Bariatric surgery status; Z90.49 Acquired absence of other specified parts of digestive tract
CPT/HCPCS: 99211

== ENCOUNTER → 2018-07-19 | Outpatient (CLI) | payer OTHER ==
--- NOTE | 2018-07-22 09:32 | MM ---
Reason for exam: screening (asymptomatic). Last mammogram was performed 1 year ago. History: Patient is postmenopausal. Family history of breast cancer in mother at age 72. Benign left US cyst aspiration of the left breast, January 12, 2006. Benign excisional biopsy of the left breast, December 30, 1999. Physical Findings: A clinical breast exam by your physician is recommended on an annual basis and results should be correlated with mammographic findings. MG 3D Screening Mammo W/Cad Bilateral CC and MLO view(s) were taken. XCCL view(s) were taken of the left breast. Prior study comparison: July 18, 2017, bilateral MG 3d screening mammo w/cad. July 17, 2016, bilateral MG 3d screening mammo w/cad. There are scattered fibroglandular densities. Benign appearing bilateral calcifications. No suspicious abnormality. Left biopsy marker noted. No significant changes when compared with prior studies. ASSESSMENT: Benign, BI-RAD 2 RECOMMENDATION: Routine screening mammogram of both breasts in 1 year.
== END | disposition home or self-care (01) ==
LOC: RADMAMWWP 10:46
PROVIDERS: ATTEND Family Medicine
DX: Z12.31 Encounter for screening mammogram for malignant neoplasm of breast (principal); Z80.3 Family history of malignant neoplasm of breast
CPT/HCPCS: 77063; 77067

== ENCOUNTER → 2018-12-30 | Outpatient (CLI) | payer OTHER ==
[2018-12-30 16:36] VITALS: BMI 35.2
[2018-12-30 17:08] VITALS: BP 149/90; PULSE 59; TEMP 98.1
--- NOTE | 2018-12-30 17:57 | P.HPBAR ---
Bariatric H&P - History & Physicial H&P Date: 12/30/18 History & Physicial: Visit/CC: 2 year annual sleeve f/u Patient initial contact: Initial weight: 130.181 kg Initial weight in pounds: 287.00 Height: 5 ft 7 in Initial BMI: 44.9 Last weight: Current weight: 102.058 kg Current weight in pounds: 225.00 Current BMI: 35.2 [place] body weight (based on NIH guidelines): 61.235 kg Excess body weight loss: 40.7% The patient is a 58 year-old F who presents for Bariatric Assessment. Patient presents today for sleeve gastrectomy follow-up. She's done fairly well. She's had some minimal GERD. She denies any nausea or dysphagia. Her weight has gone up 12 pounds in the last year. Past Medical History Past Medical History: Diabetes Mellitus, GERD/Reflux, Hyperlipidemia, Hypertension Additional Past Medical History / Comment(s): past hx. rapid heart rate, no meds for diabetes since bariatric surg., gallstones History of Any Multi-Drug Resistant Organisms: None Reported Past Surgical History: Bariatric Surgery, Cardiac Ablation, Cholecystectomy, Heart Catheterization With Stent, Hysterectomy, Orthopedic Surgery Additional Past Surgical History / Comment(s): lapband, lapband removal 2010,D&Cs, sleeve gastrectomy 09/27/16, left rotator cuff surgery lap choly 02-16-17 Past Anesthesia/Blood Transfusion Reactions: No Reported Reaction Additional Past Anesthesia/Blood Transfusion Reaction / Comm: no hx blood transfusion Date of Last Stent Placement:: 12/06/2015 Smoking Status: Never smoker - Past Family History Mother Family Medical History: Cancer, Deep Vein Thrombosis (DVT) Father Family Medical History: Diabetes Mellitus Surgical - Exam Vital Signs Temp Pulse BP 98.1 F 59 L 149/90 12/30/18 16:17 12/30/18 16:17 12/30/18 16:17 - General well developed, well nourished, no distress - Eyes PERRL - Abdomen Abdomen: soft, non tender Bariatric Assessment & Plan Plan: Status post sleeve gastrectomy. Patient is doing quite well. Her GERD is minimal and will be observed. She'll follow-up in 3 months. Bariatric Checklist Checklist: Plan: Checklist: EGD: 1. Hiatal hernia: 2. H. Pylori: HgbA1c: Vitamin D: Smoking: Never smoker Primary care physician referral: Derek Perez ([facility]) Psychiatry clearance: Cardiology clearance: Sleep study: Diet journal: VTE risk score: VTE risk level: Rehab needs at discharge:
== END ==
LOC: BARWHC3 15:16
PROVIDERS: ATTEND Surgery
DX: Z48.815 Encounter for surgical aftercare following surgery on the digestive system (principal); E66.01 Morbid (severe) obesity due to excess calories; K21.9 Gastro-esophageal reflux disease without esophagitis; Z98.84 Bariatric surgery status; Z90.49 Acquired absence of other specified parts of digestive tract; Z68.35 Body mass index [BMI] 35.0-35.9, adult
CPT/HCPCS: 97803; 99211

== ENCOUNTER → 2019-08-11 | Outpatient (CLI) | payer OTHER ==
--- NOTE | 2019-08-12 10:19 | MM ---
Reason for exam: screening (asymptomatic). Last mammogram was performed 1 year and 1 month ago. History: Patient is postmenopausal. Family history of breast cancer in mother at age 72. Benign left US cyst aspiration of the left breast, January 12, 2006. Benign excisional biopsy of the left breast, December 30, 1999. Physical Findings: A clinical breast exam by your physician is recommended on an annual basis and results should be correlated with mammographic findings. MG 3D Screening Mammo W/Cad Bilateral CC and MLO view(s) were taken. Prior study comparison: July 19, 2018, bilateral MG 3d screening mammo w/cad. July 18, 2017, bilateral MG 3d screening mammo w/cad. There are scattered fibroglandular densities. Previous mammotome biopsy in the left breast. There is chronic nodularity in the left breast. No significant changes when compared with prior studies. ASSESSMENT: Negative, BI-RAD 1 RECOMMENDATION: Routine screening mammogram of both breasts in 1 year.
== END | disposition home or self-care (01) ==
LOC: RADMAMWWP 15:04
PROVIDERS: ATTEND Family Medicine
DX: Z12.31 Encounter for screening mammogram for malignant neoplasm of breast (principal)
CPT/HCPCS: 77063; 77067

== ENCOUNTER → 2019-08-28 | Day surgery (SDC) | payer OTHER ==
[2019-08-26 10:44] VITALS: BMI 35.5
[~2019-08-28] MED LIST changes: -DEXAMETHASONE SOD PHOSPHATE 10 MG/ML 1 ML VIAL IV ONE; -HEPARIN SODIUM,PORCINE 5,000 UNIT/ML 1 ML VIAL SQ ONE; -HYDROmorphone 1 MG/ML 1 ML SYRINGE IVP PRN; +LIDOCAINE 1% (10MG/ML) FOR IV START INTRADERMA ONE; -LIDOCAINE 1% 20 ML VIAL (10MG/ML) FOR IV START INTRADERMA PRN; -ONDANSETRON 4 MG/2 ML VIAL IVP ONE; +PROPOFOL 10 MG/ML 20 ML VIAL IV ONE; -SCOPOLAMINE 1.5MG/72HR PATCH TRANSDERM ONE; -ceFAZolin IN SWFI 2 GM/20 ML SYRINGE IVP ONE
[2019-08-28 08:00] VITALS: RESP 16; TEMP 96.6
[2019-08-28 08:15] LABS: Glucose,Whole Blood 113 mg/dL (75-99)
--- NOTE | 2019-08-28 08:23 | P.GSHP ---
History of Present Illness H&P Date: 08/28/19 Chief Complaint: History of colon polyps This a 59-year-old female who presents today for colonoscopy. Patient history of colon polyps. Past Medical History Past Medical History: Coronary Artery Disease (CAD), Diabetes Mellitus, GERD/ Reflux, Hyperlipidemia, Hypertension Additional Past Medical History / Comment(s): past hx. rapid heart rate with procedure by Dr. Burroughs, hx colon polyps, Sleeve Gastrectomy (09/2016) History of Any Multi-Drug Resistant Organisms: None Reported Past Surgical History: Bariatric Surgery, Cardiac Ablation, Cholecystectomy, He art Catheterization, Heart Catheterization With Stent, Hysterectomy, Orthopedic Surgery Additional Past Surgical History / Comment(s): lapband, lapband removal 2010,D&Cs, sleeve gastrectomy 09/27/16, left rotator cuff surgery lap choly 02-16-17 Past Anesthesia/Blood Transfusion Reactions: No Reported Reaction Additional Past Anesthesia/Blood Transfusion Reaction / Comment(s): . Date of Last Stent Placement:: 12/06/2015 Past Psychological History: No Psychological Hx Reported Smoking Status: Never smoker Past Alcohol Use History: None Reported Past Drug Use History: None Reported - Past Family History Mother Family Medical History: Cancer, Deep Vein Thrombosis (DVT) Additional Family Medical History / Comment(s): ovarian & breast cancer Father Family Medical History: Diabetes Mellitus Medications and Allergies Home Medications Medication Instructions Recorded Confirmed Type Aspirin 81 mg PO HS 06/07/15 08/26/19 History Atorvastatin [Lipitor] 80 mg PO HS #30 tab 12/04/15 08/26/19 Rx Metoprolol Tartrate [Lopressor] 25 mg PO BID #60 tab 12/04/15 08/26/19 Rx Omeprazole [PriLOSEC] 20 mg PO DAILY PRN 12/12/16 08/26/19 History Cetirizine HCl [Zyrtec] 10 mg PO QAM 07/11/17 08/26/19 History Calcium Citrate/Vitamin D3 3 each PO DAILY 08/26/19 08/26/19 History [Calcium Cit 315-Vit D3 250 Tab] Cyanocobalamin (Vitamin B-12) 1,000 mcg PO DAILY 08/26/19 08/26/19 History [Vitamin B-12] Multivit-Minerals/Folic Acid 1 tab PO DAILY 08/26/19 08/26/19 History [Centrum Multigummies] Nitrofurantoin Macrocrystal 100 mg PO DIRECTED PRN 08/26/19 08/26/19 History [Nitrofurantoin] Nitroglycerin Sl Tabs [Nitrostat] 0.4 mg SUBLINGUAL Q5M PRN 08/26/19 08/26/19 History Vitamin C/Biotin [Hair, Skin and 2 tab PO DAILY 08/26/19 08/26/19 History Nails] metFORMIN HCL [Glucophage] 500 mg PO BID 08/26/19 08/26/19 History Allergies Allergy/AdvReac Type Severity Reaction Status Date / Time Penicillins Allergy Unknown Rash/Hives Verified 08/28/19 07:48 adhesive tape Allergy skin Verified 08/28/19 07:48 redness and itching,"paper tape ok" Bandaides AdvReac Unknown Itching Uncoded 08/28/19 07:48 Surgical - Exam Vital Signs Temp Pulse Resp BP Pulse Ox 96.6 F L 62 16 145/73 96 08/28/19 07:54 08/28/19 07:54 08/28/19 07:54 08/28/19 07:54 08/28/19 07:54 - General well developed, well nourished, no distress - Eyes PERRL - ENT normal pinna - Neck no masses - Respiratory normal expansion - Cardiovascular Rhythm: regular - Abdomen Abdomen: soft, non tender Results - Labs Abnormal Lab Results - Last 24 Hours (Table) 08/28/19 Range/Units 08:06 POC Glucose (mg/dL) 113 H (75-99) mg/dL Assessment and Plan Assessment: History: Pulses. We'll perform colonoscopy.
--- NOTE | 2019-08-28 08:37 | P.OP ---
Date of Procedure: 08/28/19 Preoperative Diagnosis: History of colon Polyps Postoperative Diagnosis: Rectal polyp Procedure(s) Performed: colonoscopy Anesthesia: MAC Surgeon: Flavio Garcia Pathology: other (Rectal polyp) Condition: stable Disposition: PACU Description of Procedure: The patient's placed on the endoscopy table in the lateral position. She received IV sedation. Digital rectal exam was performed which revealed no abnormalities. Flexible scope was then placed patient anus passed throughout the entire colon. The ileocecal valve sutures. The cecum, ascending and transverse colon appeared normal. The descending and sigmoid colon appeared normal. Scope was brought back the rectum and a small sessile polyp was seen. This removed with the cold forcep. Scope was then brought from patient.
[2019-08-28 09:04] VITALS: BP 128/78; PULSE 59
== END ==
LOC: ORWHC2ENDO 07:29
PROVIDERS: ATTEND Surgery
DX: Z12.11 Encounter for screening for malignant neoplasm of colon (principal); K62.1 Rectal polyp; I25.10 Atherosclerotic heart disease of native coronary artery without angina pectoris; E11.9 Type 2 diabetes mellitus without complications; K21.9 Gastro-esophageal reflux disease without esophagitis; I10 Essential (primary) hypertension; E78.5 Hyperlipidemia, unspecified; Z98.890 Other specified postprocedural states; Z90.49 Acquired absence of other specified parts of digestive tract; Z95.5 Presence of coronary angioplasty implant and graft; Z90.710 Acquired absence of both cervix and uterus; Z86.010 Personal history of colon polyps; Z98.84 Bariatric surgery status; Z80.9 Family history of malignant neoplasm, unspecified; Z80.3 Family history of malignant neoplasm of breast; Z80.41 Family history of malignant neoplasm of ovary; Z83.3 Family history of diabetes mellitus; Z79.82 Long term (current) use of aspirin; Z79.899 Other long term (current) drug therapy; Z88.0 Allergy status to penicillin; Z91.048 Other nonmedicinal substance allergy status; Z87.19 Personal history of other diseases of the digestive system; Z79.84 Long term (current) use of oral hypoglycemic drugs
CPT/HCPCS: 88305; 45380; J2704

== ENCOUNTER → 2020-08-11 | Outpatient (CLI) | payer OTHER | END | disposition home or self-care (01) | LOC: RADMAMWWP 10:34 | PROVIDERS: ATTEND Family Medicine | DX: Z12.31 Encounter for screening mammogram for malignant neoplasm of breast (principal); Z78.0 Asymptomatic menopausal state; Z80.3 Family history of malignant neoplasm of breast | CPT/HCPCS: 77063; 77067 ==

== ENCOUNTER → 2021-01-10 | Outpatient (CLI) | payer OTHER ==
--- NOTE | 2021-01-10 14:36 | BD ---
EXAMINATION TYPE: Axial Bone Density DATE OF EXAM: 01/10/2021 COMPARISON: NONE CLINICAL HISTORY: Height: 5 FT 5 IN Weight: 210 FRAX RISK QUESTIONS: Alcohol (3 or more units per day): NO Family History (Parent hip fracture): NO Glucocorticoids (More than 3mos): NO (Ex: prednisone, prednisolone, methylprednisolone, dexamethasone, and hydrocortisone). History of Fracture in Adulthood: NO Secondary Osteoporosis: 1. Type 1 Diabetes: TYPE 2 2. Hyperthyroidism: NO 3. Menopause before 45: YES 4. Malnutrition: NO 5. Chronic liver disease: NO Rheumatoid Arthritis: NO Current Tobacco Use: NO RISK FACTORS HISTORY OF: Surgery to Spine/Hip(right/left)/Wrist (right/left): NO Family History of Osteoporosis: NO Active: SOMEWHAT Diet low in dairy products/other sources of calcium: NO Postmenopausal woman: YES Take estrogen and/or progesterone medications: NO Lost more than 2 inches in height since high school: YES Frequent falls: NO Poor Health: FAIR Hyperparathyroidism: NO Adrenal Insufficiency: NO MEDICATIONS: Additional Medications: METOPROLOL, ATORVASTATIN, METFORMIN, BABY ASPIRIN, ZYRTEC, VITAMINS, Additional History: HEART STENT EXAM MEASUREMENTS: Bone mineral densitometry was performed using the [employer] System. Bone mineral density as measured about the Lumbar spine is: ----- L1-L4(G/cm2): 1.141 T Score Values are as follows: ----- L2: -0.3 ----- L3: -0.3 ----- L4: -0.1 ----- L1-L4: -0.3 BASELINE Bone mineral density about the R hip (g/cm2): 0.881 Bone mineral density about the L hip (g/cm2): 0.892 T Score values are as follows: -----R Neck: -1.1 -----L Neck: -1.0 -----R Total: -0.6 -----L Total: -0.8 BASELINE IMPRESSION: No evidence for osteoporosis or osteopenia. NOTE: T-SCORE=SD OF THE YOUNG ADULT MEAN.
== END | disposition home or self-care (01) ==
LOC: RADBDWWP 12:33
PROVIDERS: ATTEND Family Medicine
DX: Z78.0 Asymptomatic menopausal state (principal)
CPT/HCPCS: 77080

== ENCOUNTER 2021-07-21 06:51 | Day surgery (SDC) | payer OTHER ==
[2021-07-19 16:39] VITALS: BMI 33.3
[2021-07-21] MEDS ORDERED: LACTATED RINGERS 1,000 ML IV SCH (07:12)
[2021-07-21 07:26] VITALS: TEMP 97.5
[2021-07-21 07:37] LABS: Glucose,Whole Blood 108 mg/dL (75-99)
[2021-07-21] MEDS ORDERED: LIDOCAINE 2% INJ 20 MG/ML (2 ML VIAL) ONE (08:02)
[2021-07-21] MEDS ORDERED: PROPOFOL 10 MG/ML 20 ML VIAL IV ONE (08:02)
--- NOTE | 2021-07-21 08:06 | P.GSHP ---
History of Present Illness H&P Date: 07/21/21 Chief Complaint: History of colon polyps This a 7-year-old female who presents today for colonoscopy. Patient's. History of colon polyps. Past Medical History Past Medical History: Diabetes Mellitus, GERD/Reflux, Hyperlipidemia, Hype rtension Additional Past Medical History / Comment(s): past hx. rapid heart rate, History of Any Multi-Drug Resistant Organisms: None Reported Past Surgical History: Bariatric Surgery, Cardiac Ablation, Cholecystectomy, Heart Catheterization With Stent, Hysterectomy, Orthopedic Surgery Additional Past Surgical History / Comment(s): lapband, lapband removal 2010,D&Cs, sleeve gastrectomy 09/27/16, left rotator cuff surgery lap Conner 02-16-17, COLONOSCOPY, EGD, LT KNEE SX Past Anesthesia/Blood Transfusion Reactions: No Reported Reaction Additional Past Anesthesia/Blood Transfusion Reaction / Comment(s): no hx blood transfusion Date of Last Stent Placement:: 12/06/2015 Smoking Status: Never smoker - Past Family History Mother Family Medical History: Cancer, Deep Vein Thrombosis (DVT) Father Family Medical History: Diabetes Mellitus Medications and Allergies Home Medications Medication Instructions Recorded Confirmed Type Aspirin 81 mg PO HS 06/07/15 07/21/21 History Atorvastatin [Lipitor] 80 mg PO HS #30 tab 12/04/15 07/21/21 Rx Metoprolol Tartrate [Lopressor] 25 mg PO BID #60 tab 12/04/15 07/21/21 Rx Omeprazole [PriLOSEC] 20 mg PO DAILY PRN 12/12/16 07/21/21 History Cetirizine HCl [Zyrtec] 10 mg PO QAM 07/11/17 07/21/21 History Calcium Citrate/Vitamin D3 3 each PO DAILY 08/26/19 07/21/21 History [Calcium Cit 315-Vit D3 250 Tab] Cyanocobalamin (Vitamin B-12) 1,000 mcg PO DAILY 08/26/19 07/21/21 History [Vitamin B-12] Multivit-Minerals/Folic Acid 1 tab PO DAILY 08/26/19 07/21/21 History [Centrum Multigummies] Vitamin C/Biotin [Hair, Skin and 2 tab PO DAILY 08/26/19 07/21/21 History Nails] metFORMIN HCL [Glucophage] 500 mg PO BID 08/26/19 07/21/21 History Allergies Allergy/AdvReac Type Severity Reaction Status Date / Time Penicillins Allergy Unknown Rash/Hives Verified 07/21/21 07:35 adhesive tape Allergy skin Verified 07/21/21 07:35 redness and itching,"paper tape ok" adhesive AdvReac Rash/Hives Verified 07/21/21 07:35 Surgical - Exam Vital Signs Temp Pulse Resp BP Pulse Ox 97.5 F L 66 16 163/80 100 07/21/21 07:25 07/21/21 07:25 07/21/21 07:25 07/21/21 07:25 07/21/21 07:25 - General well developed, well nourished, no distress - Eyes PERRL - ENT normal pinna - Neck no masses - Respiratory normal expansion - Cardiovascular Rhythm: regular - Abdomen Abdomen: soft, non tender Results - Labs Abnormal Lab Results - Last 24 Hours (Table) 07/21/21 Range/Units 07:33 POC Glucose (mg/dL) 108 H (75-99) mg/dL Assessment and Plan Assessment: History of colon polyps. We'll perform colonoscopy.
--- NOTE | 2021-07-21 08:25 | P.OP ---
Date of Procedure: 07/21/21 Preoperative Diagnosis: History of colon polyps Postoperative Diagnosis: Left colon polyp Procedure(s) Performed: Colonoscopy Anesthesia: MAC Surgeon: Flavio Garcia Pathology: other (Left colon polyp) Condition: stable Disposition: PACU Description of Procedure: The patient's placed on the endoscopy table in the lateral position. She received IV sedation. Digital rectal exam was performed which revealed no abnormalities. Flexible colonoscope was then placed patient anus passed throughout the entire colon. The ileocecal valve was visualized. Cecum, ascending and transverse colon appeared normal.. In the descending colon was a small polyp seen. This removed a combination of snare and cold forcep. The remainder the descending colon appeared normal. Sigmoid colon had a few scattered diverticula. Scope was brought back the rectum and this appeared normal. Scope withdrawn for patient.
[2021-07-21] MEDS ORDERED: IV FLUID CONTINUATION 1,000 ML IV ONE (08:27)
[2021-07-21 08:50] VITALS: BP 151/84; PULSE 62; RESP 16
== END 2021-07-21 09:13 | disposition home or self-care (01) ==
LOC: ORWHC2ENDO 06:51
PROVIDERS: ATTEND Surgery
DX: Z12.11 Encounter for screening for malignant neoplasm of colon (principal); K63.5 Polyp of colon; K57.30 Diverticulosis of large intestine without perforation or abscess without bleeding; Z86.010 Personal history of colon polyps; E11.9 Type 2 diabetes mellitus without complications; K21.9 Gastro-esophageal reflux disease without esophagitis; I10 Essential (primary) hypertension; E78.5 Hyperlipidemia, unspecified; Z98.84 Bariatric surgery status; Z95.5 Presence of coronary angioplasty implant and graft; Z98.890 Other specified postprocedural states; Z90.49 Acquired absence of other specified parts of digestive tract; Z79.82 Long term (current) use of aspirin; Z79.899 Other long term (current) drug therapy; Z79.84 Long term (current) use of oral hypoglycemic drugs; Z91.09 Other allergy status, other than to drugs and biological substances; Z83.3 Family history of diabetes mellitus
CPT/HCPCS: 88305; 45380; J2704; J2001; 45385

== ENCOUNTER → 2021-08-12 | Outpatient (CLI) | payer OTHER ==
--- NOTE | 2021-08-16 18:35 | MM ---
Reason for Exam: Screening (asymptomatic). Last mammogram was performed 1 year(s) and 1 month(s) ago. Patient History: Menarche at age 14. First Full-Term at age 21. Hysterectomy at age 48. Postmenopausal. Patient used Hormonal Contraceptives for 2 years. 01/12/2006, Benign Cyst Aspiration on the left side. 12/30/1999, Benign Excisional Biopsy on the left side. Mother had breast cancer, age 72. Risk Values: Chantale 5 year model risk: 3.2%. NCI Lifetime model risk: 15.8%. Prior Study Comparison: 07/19/2018 Bilateral Screening Mammogram, [facility]. 08/11/2019 Bilateral Screening Mammogram, [facility]. 08/11/2020 Bilateral Screening Mammogram, [facility]. Tissue Density: There are scattered fibroglandular densities. Findings: Analyzed By CAD. Microclip left breast from prior biopsy. Benign oil cyst calcification on the right. Chronic nodularity central outer left breast. No significant change from prior exams. Overall Assessment: Benign, BI-RAD 2 Management: Screening Mammogram of both breasts in 1 year. 1. Patient should continue monthly self breast exams. 2. A clinical breast exam by your physician is recommended on an annual basis. 3. This exam should not preclude additional follow-up of suspicious palpable abnormalities. Electronically signed and approved by: Matthias Matos M.D. Radiologist
== END | disposition home or self-care (01) ==
LOC: RADMAMWWP 09:59
PROVIDERS: ATTEND Family Medicine
DX: Z12.31 Encounter for screening mammogram for malignant neoplasm of breast (principal); Z80.3 Family history of malignant neoplasm of breast; Z78.0 Asymptomatic menopausal state
CPT/HCPCS: 77063; 77067

== ENCOUNTER → 2022-08-14 | Outpatient (CLI) | payer OTHER ==
--- NOTE | 2022-08-16 08:00 | MM ---
Reason for Exam: Screening (asymptomatic). Last screening mammogram was performed 12 month(s) ago. Patient History: Menarche at age 14. First Full-Term at age 21. Hysterectomy at age 48. Postmenopausal. Patient used Hormonal Contraceptives for 2 years. 01/12/2006, Benign Cyst Aspiration on the left side. 12/30/1999, Benign Excisional Biopsy on the left side. Mother had breast cancer, age 72. Risk Values: Chantale 5 year model risk: 3.4%. NCI Lifetime model risk: 15.4%. Prior Study Comparison: 08/11/2019 Bilateral Screening Mammogram, [facility]. 08/11/2020 Bilateral Screening Mammogram, [facility]. 08/12/2021 Bilateral MG 3D screening mammo w/cad, [facility]. Tissue Density: There are scattered fibroglandular densities. Findings: Analyzed By CAD. There is no suspicious group of microcalcifications or new suspicious mass in either breast. Biopsy clip within the left breast. Chronic nodularity within the bilateral breasts. Benign calcifications within both breasts. Overall Assessment: Benign, BI-RAD 2 Management: Screening Mammogram of both breasts in 1 year. A clinical breast exam by your physician is recommended on an annual basis and results should be correlated with mammographic findings. Note on Chantale scores and lifetime risk: 1. A Chantale score greater than 3% is considered moderate risk. If this is the case, consider specialist referral to assess eligibility for a risk reducing agent. If overall lifetime risk for the development of breast cancer is 20% or higher, the patient may qualify for future screening with alternating mammogram and breast MRI. Electronically signed and approved by: Pasha Ascencio D.O.
== END | disposition home or self-care (01) ==
LOC: RADMAMWWP 09:46
PROVIDERS: ATTEND Family Medicine
DX: Z12.31 Encounter for screening mammogram for malignant neoplasm of breast (principal); Z78.0 Asymptomatic menopausal state; Z80.3 Family history of malignant neoplasm of breast
CPT/HCPCS: 77063; 77067

== ENCOUNTER 2023-01-19 07:37 | Emergency (ER) | payer OTHER ==
[2023-01-19 08:04] VITALS: RESP 18; TEMP 98.1
--- NOTE | 2023-01-19 08:39 | ED ---
General Adult HPI - General Chief complaint: Neuro Symptoms/Deficit Stated complaint: high bp tingle in arm Time Seen by Provider: 01/19/23 08:01 Source: EMS Mode of arrival: EMS Limitations: no limitations - History of Present Illness Initial comments: Dictation was produced using [employer] dictation software. please excuse any grammatical, word or spelling errors. Chief Complaint: 62-year-old female presents emergency department for bilateral hand tingling and elevated blood pressure History of Present Illness: [age]old female presents emergency department for bilateral hand tingling and elevated blood pressure. States that the tingling happened last night lasted for several minutes and then went away. She also checked her blood pressure was found to be high. She does have a history of hypertension and takes medications. She states that she had her medication dosage increased by her primary care physician. Patient has no other complaints. Denies any chest pain short of breath headache or strokelike symptoms. The ROS documented in this emergency department record has been reviewed and confirmed by me. Those systems with pertinent positive or negative responses have been documented in the HPI. All other systems are other negative and/or noncontributory. - Related Data Home Medications Medication Instructions Recorded Confirmed Aspirin 81 mg PO HS 06/07/15 01/19/23 Omeprazole [PriLOSEC] 20 mg PO DAILY PRN 12/12/16 01/19/23 Cetirizine HCl [Zyrtec] 10 mg PO DAILY 07/11/17 01/19/23 Calcium Citrate/Vitamin D3 1 tab PO DAILY 08/26/19 01/19/23 [Calcium Cit 315-Vit D3 250 Tab] Cyanocobalamin (Vitamin B-12) 1,000 mcg PO DAILY 08/26/19 01/19/23 [Vitamin B-12] Multivit-Minerals/Folic Acid 1 tab PO DAILY 08/26/19 01/19/23 [Centrum Multigummies] Vitamin C/Biotin [Hair, Skin and 2 tab PO DAILY 08/26/19 01/19/23 Nails] metFORMIN HCL [Glucophage] 1,000 mg PO BID 08/26/19 01/19/23 Ferrous Sulfate [Feosol] 325 mg PO DAILY 01/19/23 01/19/23 Losartan Potassium [Cozaar] 100 mg PO DAILY 01/19/23 01/19/23 Magnesium 250 mg PO DAILY 01/19/23 01/19/23 Psyllium Husk [Metamucil] 1.6 gm PO BID 01/19/23 01/19/23 Previous Rx's Medication Instructions Recorded Atorvastatin [Lipitor] 80 mg PO HS #30 tab 12/04/15 Metoprolol Tartrate [Lopressor] 25 mg PO BID #60 tab 12/04/15 Allergies Allergy/AdvReac Type Severity Reaction Status Date / Time Penicillins Allergy Unknown Rash/Hives Verified 01/19/23 08:14 adhesive tape Allergy skin Verified 01/19/23 08:14 redness and itching,"paper tape ok" adhesive AdvReac Rash/Hives Verified 01/19/23 08:14 Review of Systems ROS Statement: Those systems with pertinent positive or pertinent negative responses have been documented in the HPI. ROS Other: All systems not noted in ROS Statement are negative. Past Medical History Past Medical History: Diabetes Mellitus, GERD/Reflux, Hyperlipidemia, Hypertension Additional Past Medical History / Comment(s): past hx. rapid heart rate, History of Any Multi-Drug Resistant Organisms: None Reported Past Surgical History: Bariatric Surgery, Cardiac Ablation, Cholecystectomy, Heart Catheterization With Stent, Hysterectomy, Orthopedic Surgery Additional Past Surgical History / Comment(s): lapband, lapband removal 2010,D&Cs, sleeve gastrectomy 09/27/16, left rotator cuff surgery lap Conner 02-16-17, COLONOSCOPY, EGD, LT KNEE SX Past Anesthesia/Blood Transfusion Reactions: No Reported Reaction Additional Past Anesthesia/Blood Transfusion Reaction / Comment(s): no hx blood transfusion Date of Last Stent Placement:: 12/06/2015 Past Psychological History: No Psychological Hx Reported Smoking Status: Never smoker Past Alcohol Use History: Occasional, Rare Past Drug Use History: None Reported - Past Family History Mother Family Medical History: Cancer, Deep Vein Thrombosis (DVT) Father Family Medical History: Diabetes Mellitus General Exam - General Exam Comments Initial Comments: PHYSICAL EXAM: General Impression: Alert and oriented x3, not in acute distress HEENT: Normocephalic atraumatic, extra-ocular movements intact, pupils equal and reactive to light bilaterally, mucous membranes moist. Cardiovascular: Heart regular rate and rhythm Chest: Able to complete full sentences, no retractions, no tachypnea Abdomen: abdomen soft, non-tender, non-distended, no organomegaly Musculoskeletal: Pulses present and equal in all extremities, no peripheral edema Motor: no focal deficits noted Neurological: CN II-XII grossly intact, no focal motor or sensory deficits noted Skin: Intact with no visualized rashes Psych: Normal affect and mood Limitations: no limitations Course Vital Signs 01/19/23 01/19/23 01/19/23 07:48 08:30 09:00 Temperature 98.1 F Pulse Rate 70 66 62 Respiratory 18 18 18 Rate Blood Pressure 160/93 154/87 146/76 O2 Sat by Pulse 98 97 95 Oximetry EKG Findings - EKG Comments: EKG Findings:: My EKG interpretation: Ventricular rate 65, sinus rhythm, left bundle branch block,. Interval 164, QRS 150, QTc 462. No AK prolongation, no QTC prolongation, no ST or T-wave changes noted. Overall, this EKG is unremarkable Medical Decision Making - Medical Decision Making Was pt. sent in by a medical professional or institution (, PA, DIRECTOR OF MEDIA, urgent care, hospital, or long-term...) When possible be specific @ -no Did you speak to anyone other than the patient for history (EMS, parent, family, police, friend...)? What history was obtained from this source @ -No Did you review nursing and triage notes (agree or disagree)? Why? @ -I reviewed and agree with nursing and triage notes Were old charts reviewed (outside hosp., previous admission, EMS record, old EKG, old radiological studies, urgent care reports/EKG's, long-term records)? Report findings @ -No old charts were reviewed Differential Diagnosis (chest pain, altered mental status, abdominal pain women, abdominal pain men, vaginal bleeding, musculoskeletal, weakness, fever, dyspnea, syncope, headache, dizziness, GI bleed, back pain, seizure, CVA, palpatations, mental health)? @ -not applicable EKG interpreted by me (3pts min.). @ -See above X-rays interpreted by me (1pt min.). @ -None done CT interpreted by me (1pt min.). @ -None done U/S interpreted by me (1pt. min.). @ -None done What testing was considered but not performed or refused? (CT, X-rays, U/S, labs)? Why? @ -None What meds were considered but not given or refused? Why? @ -None Did you discuss the management of the patient with other professionals (professionals i.e. DrLiya, PA, DIRECTOR OF MEDIA, lab, RT, psych nurse, social secretary, bulker, teacher, information officer, case sealer)? Give summary @ -No Was smoking cessation discussed for >3mins.? @ -No Was critical care preformed (if so, how long)? @ -No Were there social determinants of health that impacted care today? How? (Homelessness, low income, unemployed, alcoholism, drug addiction, transportation, low edu. Level, literacy, decrease access to med. care, snf, rehab)? @ -No Was there de-escalation of care discussed even if they declined (Discuss DNR or withdrawal of care, Hospice)? DNR status @ -No What co-morbidities impacted this encounter? (DM, HTN, Smoking, COPD, CAD, Cancer, CVA, ARF, Chemo, Hep., AIDS, mental health diagnosis, sleep apnea, morbid obesity)? @ -None Was patient admitted / discharged? Hospital course, mention meds given and route, prescriptions, significant lab abnormalities, going to OR and other pertinent info. @ -62 Year-old female presents emergency department for elevated blood pressure followed by bilateral upper extremity tingling. Vital signs stable. Laboratory evaluation is unremarkable. Electrolytes normal. Patient observed in emergency department stable medical condition. Patient discharged advised follow-up with primary care doctor. Undiagnosed new problem with uncertain prognosis? @ -No Drug Therapy requiring intensive monitoring for toxicity (Heparin, Nitro, Insulin, Cardizem)? @ -No Were any procedures done? @ -No Diagnosis/symptom? Acute, or Chronic, or Acute on Chronic? Uncomplicated (without systemic symptoms) or Complicated (systemic symptoms)? @ -Hypertension, asymptomatic Side effects of treatment? @ -No Exacerbation, Progression, or Severe Exacerbation? @ -No Poses a threat to life or bodily function? How? (Chest pain, USA, NM, pneumonia, PE, COPD, DKA, ARF, appy, cholecystitis, CVA, Diverticulitis, Homicidal, Suicidal, threat to staff... and all critical care pts) @ -No - Lab Data Result diagrams: 01/19/23 08:50 01/19/23 08:50 Lab Results 01/19/23 01/19/23 Range/Units 08:50 08:50 WBC 6.9 (3.8-10.6) k/uL RBC 4.37 (3.80-5.40) m/uL Hgb 13.3 (11.4-16.0) gm/dL Hct 41.3 (34.0-46.0) % MCV 94.6 (80.0-100.0) fL MCH 30.3 (25.0-35.0) pg MCHC 32.1 (31.0-37.0) g/dL RDW 13.3 (11.5-15.5) % Plt Count 190 (150-450) k/uL MPV 8.4 Neutrophils % 71 % Lymphocytes % 16 % Monocytes % 10 % Eosinophils % 1 % Basophils % 0 % Neutrophils # 4.9 (1.3-7.7) k/uL Lymphocytes # 1.1 (1.0-4.8) k/uL Monocytes # 0.7 (0-1.0) k/uL Eosinophils # 0.1 (0-0.7) k/uL Basophils # 0.0 (0-0.2) k/uL Sodium 139 (137-145) mmol/L Potassium 4.1 (3.5-5.1) mmol/L Chloride 103 (98-107) mmol/L Carbon Dioxide 25 (22-30) mmol/L Anion Gap 11 mmol/L BUN 12 (7-17) mg/dL Creatinine 0.64 (0.52-1.04) mg/dL Est GFR (CKD-EPI)AfAm >90 (>60 ml/min/1.73 sqM) Est GFR (CKD-EPI)NonAf >90 (>60 ml/min/1.73 sqM) Glucose 171 H (74-99) mg/dL Calcium 10.1 (8.4-10.2) mg/dL Magnesium 1.7 (1.6-2.3) mg/dL Disposition Clinical Impression: Hypertension Disposition: HOME SELF-CARE Condition: Good Instructions (If sedation given, give patient instructions): Hypertension (ED) Is patient prescribed a controlled substance at d/c from ED?: No Referrals: Bethany Carty DO [Primary Care Provider] - 1-2 days Time of Disposition: 09:45
[2023-01-19 09:00] LABS: Basophils % (A) 0 %; Eosinophils # (A) 0.1 k/uL (0-0.7); Eosinophils % (A) 1 %; HCT 41.3 % (34.0-46.0); HGB 13.3 gm/dL (11.4-16.0); Lymphocytes # (A) 1.1 k/uL (1.0-4.8); Lymphocytes % (A) 16 %; MCH 30.3 pg (25.0-35.0); MCHC 32.1 g/dL (31.0-37.0); MCV 94.6 fL (80.0-100.0); Mean Platelet Volume 8.4; Monocytes # (A) 0.7 k/uL (0-1.0); Monocytes % (A) 10 %; Neutrophils # (A) 4.9 k/uL (1.3-7.7); Neutrophils % (A) 71 %; Platelet Count 190 k/uL (150-450); RBC 4.37 m/uL (3.80-5.40); RDW 13.3 % (11.5-15.5); WBC 6.9 k/uL (3.8-10.6)
[2023-01-19 09:11] LABS: African American GFR (CKD) >90 (>60 ml/min/1.73 sqM); Anion Gap 11 mmol/L; Blood Urea Nitrogen 12 mg/dL (7-17); Calcium 10.1 mg/dL (8.4-10.2); Carbon Dioxide 25 mmol/L (22-30); Chloride 103 mmol/L (98-107); Glucose 171 mg/dL (74-99); Magnesium 1.7 mg/dL (1.6-2.3); Non-African American GFR(CKD) >90 (>60 ml/min/1.73 sqM); Potassium 4.1 mmol/L (3.5-5.1); Sodium 139 mmol/L (137-145)
[2023-01-19 09:23] VITALS: PULSE 62
[2023-01-19 09:47] VITALS: BP 139/71
== END 2023-01-19 09:47 | disposition home or self-care (01) ==
LOC: EC 07:37
DX: I10 Essential (primary) hypertension (principal); I44.7 Left bundle-branch block, unspecified; E11.9 Type 2 diabetes mellitus without complications; K21.9 Gastro-esophageal reflux disease without esophagitis; Z79.84 Long term (current) use of oral hypoglycemic drugs; Z79.82 Long term (current) use of aspirin; Z79.899 Other long term (current) drug therapy; Z88.0 Allergy status to penicillin; Z88.8 Allergy status to other drugs, medicaments and biological substances
CPT/HCPCS: 36415; 80048; 83735; 85025; 99284

== ENCOUNTER 2023-07-16 11:07 | Day surgery (SDC) | payer OTHER ==
[~2023-07-16 11:07] MED LIST changes: -LACTATED RINGERS 1,000 ML IV SCH; -LIDOCAINE 1% (10MG/ML) FOR IV START INTRADERMA ONE; +LIDOCAINE 1% (10MG/ML) FOR IV START INTRADERMA PRN; -PROPOFOL 10 MG/ML 20 ML VIAL IV ONE
[2023-07-16] MEDS: IV FLUID CONTINUATION 1,000 ML IV ONE (11:32)
[2023-07-16] MEDS: LACTATED RINGERS 1,000 ML IV SCH (11:40)
[2023-07-16 11:44] LABS: Glucose,Whole Blood 108 mg/dL (70-110)
[2023-07-16] MEDS ORDERED: LIDOCAINE 1% INJ 10MG/ML (20 ML MDV) ONE (12:06)
[2023-07-16] MEDS ORDERED: PROPOFOL 10 MG/ML 20 ML VIAL IV ONE (12:06)
--- NOTE | 2023-07-16 12:44 | P.GSHP ---
History of Present Illness H&P Date: 07/16/23 Chief Complaint: history ofpolyps this a 63-year-old female who presents today for colonoscopy. Patient has appears history of colon polyps. Past Medical History Past Medical History: Diabetes Mellitus, GERD/Reflux, Hyperlipidemia, Hy pertension Additional Past Medical History / Comment(s): past hx. rapid heart rate, History of Any Multi-Drug Resistant Organisms: None Reported Past Surgical History: Bariatric Surgery, Cardiac Ablation, Cholecystectomy, Heart Catheterization With Stent, Hysterectomy, Orthopedic Surgery Additional Past Surgical History / Comment(s): lapband, lapband removal 2010,D&Cs, sleeve gastrectomy 09/27/16, left rotator cuff surgery lap Conner 02-16-17, COLONOSCOPY, EGD, LT KNEE SX Past Anesthesia/Blood Transfusion Reactions: No Reported Reaction Additional Past Anesthesia/Blood Transfusion Reaction / Comment(s): no hx blood transfusion Date of Last Stent Placement:: 12/06/2015 Smoking Status: Never smoker - Past Family History Mother Family Medical History: Cancer, Deep Vein Thrombosis (DVT) Father Family Medical History: Diabetes Mellitus Medications and Allergies Home Medications Medication Instructions Recorded Confirmed Type Aspirin 81 mg PO HS 06/07/15 07/16/23 History Atorvastatin [Lipitor] 80 mg PO HS #30 tab 12/04/15 07/16/23 Rx Metoprolol Tartrate [Lopressor] 25 mg PO BID #60 tab 12/04/15 07/16/23 Rx Omeprazole [PriLOSEC] 20 mg PO DAILY PRN 12/12/16 07/16/23 History Cyanocobalamin (Vitamin B-12) 1,000 mcg PO DAILY 08/26/19 07/16/23 History [Vitamin B-12] Multivit-Minerals/Folic Acid 1 tab PO DAILY 08/26/19 07/16/23 History [Centrum Multigummies] metFORMIN HCL [Glucophage] 1,000 mg PO BID 08/26/19 07/16/23 History Losartan Potassium [Cozaar] 100 mg PO DAILY 01/19/23 07/16/23 History Magnesium 250 mg PO DAILY 01/19/23 07/16/23 History Psyllium Husk [Metamucil] 1.6 gm PO BID 01/19/23 07/16/23 History Loratadine [Claritin] 10 mg PO DAILY 07/12/23 07/16/23 History Vit D3 (Nk) 259 mcg PO DAILY 07/12/23 07/16/23 History amLODIPine [Norvasc] 5 mg PO HS 07/16/23 07/16/23 History Allergies Allergy/AdvReac Type Severity Reaction Status Date / Time Penicillins Allergy Unknown Rash/Hives Verified 07/16/23 11:31 adhesive tape Allergy skin Verified 07/16/23 11:31 redness and itching,"paper tape ok" adhesive AdvReac Rash/Hives Verified 07/16/23 11:31 Surgical - Exam Vital Signs Temp Pulse Resp BP Pulse Ox 96.8 F L 64 16 158/72 99 07/16/23 11:31 07/16/23 11:31 07/16/23 11:31 07/16/23 11:31 07/16/23 11:31 - General well developed, well nourished, no distress - Eyes PERRL - ENT normal pinna - Neck no masses - Respiratory normal expansion - Cardiovascular Rhythm: regular - Abdomen Abdomen: soft, non tender Assessment and Plan Assessment: history of colon polyps. We'll perform colonoscopy.
--- NOTE | 2023-07-16 12:48 | P.OP ---
Date of Procedure: 07/16/23 Preoperative Diagnosis: history of colon polyps Postoperative Diagnosis: normal colonoscopy Procedure(s) Performed: colonoscopy Anesthesia: MAC Surgeon: Flavio Garcia Pathology: none sent Condition: stable Disposition: PACU Description of Procedure: the patient's placed on the endoscopy table in the lateral position. She received IV sedation. Digital rectal exam was performed. This revealed no abnormalities. Flexible colonoscopewas placed patient anus and passed throughout the entire colon.the ileocecal valve lesions. The right colon, transverse colon, descending colon and sigmoid colon appeared normal. Scope was back the rectum and this appeared normal scope withdrawn for patient.
[2023-07-16 13:28] VITALS: BP 152/72; PULSE 76; RESP 16; TEMP 96.8
== END 2023-07-16 13:16 | disposition home or self-care (01) ==
LOC: ORWHC2ENDO 11:07
PROVIDERS: ATTEND Surgery
DX: Z12.11 Encounter for screening for malignant neoplasm of colon (principal); E11.9 Type 2 diabetes mellitus without complications; E78.5 Hyperlipidemia, unspecified; I10 Essential (primary) hypertension; K21.9 Gastro-esophageal reflux disease without esophagitis; Z79.84 Long term (current) use of oral hypoglycemic drugs; Z88.0 Allergy status to penicillin; Z90.49 Acquired absence of other specified parts of digestive tract; Z79.899 Other long term (current) drug therapy; Z86.010 Personal history of colon polyps; Z90.710 Acquired absence of both cervix and uterus; Z98.84 Bariatric surgery status; Z79.82 Long term (current) use of aspirin
CPT/HCPCS: 45378; J2001; J2704

== ENCOUNTER → 2023-08-21 | Outpatient (CLI) | payer OTHER ==
--- NOTE | 2023-08-29 22:03 | MM ---
Reason for Exam: Screening (asymptomatic). Last screening mammogram was performed 12 month(s) ago. Patient History: Menarche at age 14. First Full-Term at age 21. Hysterectomy at age 48. Postmenopausal. Patient used Hormonal Contraceptives for 2 years. 01/12/2006, Benign Cyst Aspiration on the left side. 12/30/1999, Benign Excisional Biopsy on the left side. Mother had breast cancer, age 72. Risk Values: Chantale 5 year model risk: 3.5%. NCI Lifetime model risk: 15.0%. Prior Study Comparison: 08/11/2020 Bilateral Screening Mammogram, LOCATED WITHIN [facility]. 08/12/2021 Bilateral MG 3D screening mammo w/cad, [facility]. 08/14/2022 Bilateral MG 3D screening mammo w/cad, LOCATED [facility]IN [facility]. Tissue Density: There are scattered areas of fibroglandular density. Findings: Analyzed By CAD. Chronic bilateral nodularity. There is no suspicious group of microcalcifications or new suspicious mass in either breast. Overall Assessment: Benign, BI-RAD 2 Management: Screening Mammogram of both breasts in 1 year. See note below in regards to the patient's increased 5 year Chantale score. Patient should continue monthly self-breast exams. A clinical breast exam by your physician is recommended on an annual basis. This exam should not preclude additional follow-up of suspicious palpable abnormalities. Note on Chantale scores and lifetime risk: 1. A Chantale score greater than 3% is considered moderate risk. If this is the case, consider specialist referral to assess eligibility for a risk reducing agent. 2. If overall lifetime risk for the development of breast cancer is 20% or higher, the patient may qualify for future screening with alternating mammogram and breast MRI. Electronically signed and approved by: Matthias Matos M.D. Radiologist
== END | disposition home or self-care (01) ==
LOC: RADMAMWWP 10:43
PROVIDERS: ATTEND Family Medicine
DX: Z12.31 Encounter for screening mammogram for malignant neoplasm of breast (principal); R92.323 Mammographic fibroglandular density, bilateral breasts; Z78.0 Asymptomatic menopausal state; Z80.3 Family history of malignant neoplasm of breast; Z92.0 Personal history of contraception
CPT/HCPCS: 77063; 77067

== ENCOUNTER → 2023-09-27 | Outpatient (CLI) | payer OTHER ==
--- NOTE | 2023-10-22 13:28 | MR ---
EXAMINATION TYPE: MR knee LT without contrast DATE OF EXAM: 10/22/2023 COMPARISON: None HISTORY: Knee pain for 3 months TECHNIQUE: Multiecho multiplanar images of the left knee were obtained. FINDINGS: There is no bone contusion or fracture. There is a large joint effusion and a 9 x 9 x 47 mm Carias's cyst. There is tricompartment osteoarthritis. There is moderate cartilage loss and hypertrophic spurring of the medial and patellofemoral compartments. The patellar cartilage is irregular and frayed along its surface. There is moderate to marked cartilage loss and hypertrophic spurring of the lateral compartment with mild subchondral bone changes. There is extrusion of the lateral meniscus laterally. And there is a v ertical tear in the posterior horn of the lateral meniscus. The cruciate ligaments are intact. The medial collateral ligament is intact. There is a tear of the l ateral collateral ligament and popliteus tendon at the attachment to the lateral femoral condyle. IMPRESSION: 1. No bone contusion or fracture. 2. Large joint effusion and Carias's cyst. 3. Tear and extrusion of the lateral meniscus as described above. 4. Tearing of the proximal aspects of the popliteus tendon and lateral collateral ligament. 5. Moderate to marked tricompartment osteoarthritis, greatest in the lateral compartment.
== END | disposition home or self-care (01) ==
LOC: RADMRIMAIN 08:15
PROVIDERS: ATTEND Orthopaedic Surgery
DX: S83.282A Other tear of lateral meniscus, current injury, left knee, initial encounter (principal); E78.49 Other hyperlipidemia; S80.02XD Contusion of left knee, subsequent encounter; E11.9 Type 2 diabetes mellitus without complications; M17.12 Unilateral primary osteoarthritis, left knee

== ENCOUNTER → 2024-08-21 | Outpatient (CLI) | payer OTHER ==
--- NOTE | 2024-08-21 13:20 | MM ---
Reason for Exam: Screening (asymptomatic). Last screening mammogram was performed 12 month(s) ago. Patient History: Menarche at age 14. First Full-Term at age 21. Hysterectomy at age 48. Postmenopausal. Patient used Hormonal Contraceptives for 2 years. 01/12/2006, Benign Cyst Aspiration on the left side. 12/30/1999, Benign Excisional Biopsy on the left side. Mother had breast cancer, age 72. Risk Values: Chantale 5 year model risk: 3.6%. NCI Lifetime model risk: 14.5%. Prior Study Comparison: 08/12/2021 Bilateral MG 3D screening mammo w/cad, [facility]. 08/14/2022 Bilateral MG 3D screening mammo w/cad, [facility]. 08/21/2023 Bilateral MG 3D screening mammo w/cad, [facility]. Tissue Density: There are scattered areas of fibroglandular density. Findings: Analyzed By CAD. Mammotome biopsy clip in the left breast is redemonstrated. There are a few small benign-appearing round calcification scattered throughout the right breast. Stable 4 mm circumscribed round mass in the upper aspect left breast. There is no suspicious group of microcalcifications or new suspicious mass in either breast. Overall Assessment: Benign, BI-RAD 2 Management: Screening Mammogram of both breasts in 1 year. . Patient should continue monthly self-breast exams. A clinical breast exam by your physician is recommended on an annual basis. This exam should not preclude additional follow-up of suspicious palpable abnormalities. Note on Chantale scores and lifetime risk: 1. A Chantale score greater than 3% is considered moderate risk. If this is the case, consider specialist referral to assess eligibility for a risk reducing agent. 2. If overall lifetime risk for the development of breast cancer is 20% or higher, the patient may qualify for future screening with alternating mammogram and breast MRI. [facility], , 08/21/2024 1:09 PM. Electronically signed and approved by: Anson Bowman M.D.
== END | disposition home or self-care (01) ==
LOC: RADMAMWWP 10:21
PROVIDERS: ATTEND Family Medicine
DX: Z12.31 Encounter for screening mammogram for malignant neoplasm of breast (principal); R92.323 Mammographic fibroglandular density, bilateral breasts; R92.1 Mammographic calcification found on diagnostic imaging of breast; Z78.0 Asymptomatic menopausal state; Z92.0 Personal history of contraception; Z80.3 Family history of malignant neoplasm of breast
CPT/HCPCS: 77063; 77067